=== PATIENT | male | born 1965 | race African-American/Black ===

== ENCOUNTER 2018-01-19 08:20 | Inpatient (IN) | payer OTHER ==
[2018-01-19 08:56] VITALS: BMI 31.5
--- NOTE | 2018-01-19 09:04 | HP ---
CIWA Score - Admission Criteria OASAS Guidelines: Admission for Medically Managed Detox: Requires at least one of the followin. CIWA greater than 12 2. Seizures within the past 24 hours 3. Delirium tremens within the past 24 hours 4. Hallucinations within the past 24 hours 5. Acute intervention needed for co occurring medical disorder 6. Acute intervention needed for co occurring psychiatric disorder 7. Severe withdrawal that cannot be handled at a lower level of care (continued vomiting, continued diarrhea, abnormal vital signs) requiring intravenous medication and/or fluids 8. Admission ROS [facility]HS - HPI Chief Complaint: i am here for rehab from alcohol,cocaine,on parole Allergies/Adverse Reactions: Allergies Allergy/AdvReac Type Severity Reaction Status Date / Time naproxen [From Naprosyn] AdvReac Severe Vomiting Verified 01/19/18 09:32 History of Present Illness: this 52 years old male with alcohol and cocaine dependence,seeking rehab,on parol, last treatment rehab from 02/18/17 to 02/21/17 not completed [facility] 01/06/18 nicotine dependence schizophrenia,bipolar disorder non compliance with medication epilepsy since childhood childhood asthma angina Exam Limitations: No Limitations - Ebola screening Have you traveled outside of the country in the last 21 days: No Have you had contact with anyone from an Ebola affected area: No Have you been sick,other than usual withdrawal symptoms: No Do you have a fever: No - Review of Systems Constitutional: No Symptoms Reported EENT: reports: Other (ulcer of upper lip,no bleeding) Respiratory: reports: No Symptoms reported, Other (asthma at childhood) Cardiac: reports: No Symptoms Reported GI: reports: No Symptoms Reported : reports: No Symptoms Reported Musculoskeletal: reports: No Symptoms Reported Integumentary: reports: No Symptoms Reported Neuro: reports: No Symptoms reported, Other (epilepsy on med since childhood) Endocrine: reports: No Symptoms Reported Hematology: reports: No Symptoms Reported Psychiatric: reports: No Sypmtoms Reported, Judgement Intact, Mood/Affect Appropiate, Orientated x3 (schizophrenia,bipolar disorder) Patient History - Patient Medical History Hx Anemia: No Hx Asthma: Yes (childhood asthma) Hx Chronic Obstructive Pulmonary Disease (COPD): No Hx Cancer: No Hx Cardiac Disorders: Yes (angina) Hx Congestive Heart Failure: No Hx Hypertension: No Hx Hypercholesterolemia: No Hx Pacemaker: No HX Cerebrovascular Accident: No Hx Seizures: Yes (Last Episode 4 months ago) Hx Dementia: No Hx Diabetes: No Hx Gastrointestinal Disorders: No Hx Liver Disease: No Hx Genitourinary Disorders: No Hx Sexually Transmitted Disorders: No Hx Renal Disease (ESRD): No Hx Thyroid Disease: No Hx Human Immunodeficiency Virus (HIV): No (LAST 2014 ) Hx Hepatitis C: No Hx Depression: No Hx Suicide Attempt: No Hx Bipolar Disorder: Yes (non compliance) Hx Schizophrenia: Yes Other Medical History: schizoaffective disorder, - Patient Surgical History Past Surgical History: Yes Hx Neurologic Surgery: No Hx Cataract Extraction: No Hx Cardiac Surgery: No Hx Lung Surgery: No Hx Breast Surgery: No Hx Breast Biopsy: No Hx Abdominal Surgery: No Hx Appendectomy: No Hx Cholecystectomy: No Hx Genitourinary Surgery: No Hx Section: No Hx Orthopedic Surgery: Yes (RIGHT ANKLE 15 YEARS AGO) Anesthesia Reaction: No - PPD History Previous Implant?: Yes Documented Results: Negative w/o proof Date: 02/09/16 Results: 0 mm PPD to be Administered?: Yes - Smoking Cessation Smoking history: Current some day smoker Aproximately how many cigarettes per day: 10 Hx Chewing Tobacco Use: No Initiated information on smoking cessation: Yes 'Breaking Loose' booklet given: 01/19/18 - Substance & Tx. History Hx Alcohol Use: Yes Hx Substance Use: Yes Substance Use Type: Alcohol, Cocaine Hx Substance Use Treatment: Yes ([facility] rehab 02/18/17 to 02/21/17 not completed) - Substances Abused Alcohol Route: Oral Frequency: Daily Amount used: 1pint of gin/6 packs of beer Age of first use: 17 Date of Last Use: 12/18/17 Crack Route: Smoking Frequency: Daily Amount used: 500$ Age of first use: 27 Date of Last Use: 01/18/18 Family Disease History - Family Disease History Family History: Denies Admission Physical Exam BHS - Vital Signs Vital Signs: Vital Signs - 24 hr 01/19/18 08:50 Temperature 98.5 F Pulse Rate 86 Respiratory 18 Rate Blood Pressure 127/72 - Physical General Appearance: Yes: Within Normal Limits HEENTM: Yes: Normal ENT Inspection, Pharynx Normal, Other (ulcer of upper lip fpr 1 week no bleeding,no dranage) Respiratory: Yes: Lungs Clear, Normal Breath Sounds, No Respiratory Distress Neck: Yes: Within Normal Limits, Supple, Trachea in good position Breast: Yes: Within Normal Limits Cardiology: Yes: Within Normal Limits, Regular Rhythm, Regular Rate, S1, S2 Abdominal: Yes: Within Normal Limits, Normal Bowel Sounds, Non Tender, Flat, Soft Genitourinary: Yes: Within Normal Limits Back: Yes: Within Normal Limits Musculoskeletal: Yes: Within Normal Limits Extremities: Yes: Within Normal Limits 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 intact, Fully Oriented, Alert, Motor Strength 5/5 Lymphatic: Yes: Within Normal Limits - Diagnostic (1) Alcohol dependence Current Visit: No Status: Acute (2) Cocaine dependence Current Visit: No Status: Acute (3) Nicotine dependence Current Visit: No Status: Chronic (4) Paranoid schizophrenia Current Visit: No Status: Chronic (5) Seizure Current Visit: No Status: Acute (6) Lip ulcer Current Visit: Yes Status: Acute (7) Angina pectoris Current Visit: Yes Status: Acute Cleared for Admission [facility] - Detox or Rehab Claeared for Rehab Admission: Yes [facility] Breath Alcohol Content Breath Alcohol Content: 0 Urine Drug Screen - Results Drug Screen Negative: No Urine Drug Screen Results: THC-Marijuana, MINA-Cocaine, BZO-Benzodiazepines Inpatient Rehab Admission - Initial Determination Are CD services needed?: Yes Free of communicable disease: Yes Not in need of hospitalization: Yes - Rehab Admission Criteria Previous failed treatment: Yes Poor recovery environment: Yes Comorbidities: Yes Lacks judgement: No Patient is meeting Inpatient Rehab admission criteria:: Yes
[2018-01-19] MEDS ORDERED: P-EPHED 60MG/TRIPROLIDI 2.5MG TABLET PO PRN (09:55)
[2018-01-19] MEDS ORDERED: ACETAMINOPHEN 325 MG TABLET (FP) PO PRN (09:55)
[2018-01-19] MEDS ORDERED: MAG HYDROX/AL HYDROX/SIMETH 30 ML UNIT-DOSE CUP PO PRN (09:55)
[2018-01-19] MEDS ORDERED: MENTHOL/PHENOL 1 EACH UD MM PRN (09:55)
[2018-01-19] MEDS ORDERED: hydrOXYzine PAMOATE 50 MG CAPSULE (FP) PO PRN (09:55)
[2018-01-19] MEDS ORDERED: LOPERAMIDE HCL 2 MG CAPSULE PO PRN (09:55)
[2018-01-19] MEDS ORDERED: guaiFENesin/D-METHORPHAN HB 10 ML UNIT-DOSE CUPS PO PRN (09:55)
[2018-01-19] MEDS ORDERED: IBUPROFEN 400 MG TABLET (FP) PO PRN (09:55)
[2018-01-19] MEDS ORDERED: MAGNESIUM HYDROX 2400MG/30ML ORAL SUSPENSION 30 ML CUP PO PRN (09:55)
[2018-01-19] MEDS ORDERED: MAGNESIUM CITRATE 300 ML BOTTLE PO PRN (09:55)
[2018-01-19] MEDS ORDERED: NITROGLYCERIN SUBLINGUAL 1/150 0.4 MG TAB SL PRN (09:57)
[2018-01-19 14:18] LABS: ALBUMIN 3.4 g/dl (3.4-5.0); ALK PHOS 99 U/L (45-117); ANION GAP 6 MMOL/L (8-16); BILIRUBIN,TOTAL 0.3 mg/dL (0.2-1); BLOOD UREA NITROGEN 18 mg/dL (7-18); CALCIUM 8.4 mg/dL (8.5-10.1); CHLORIDE 101 mmol/L (98-107); CO2 30 mmol/L (21-32); CREATININE 1.1 mg/dL (0.55-1.3); GLUCOSE,RANDOM 87 mg/dL (74-106); POTASSIUM 4.5 mmol/L (3.5-5.1); SGOT/AST 31 U/L (15-37); SGPT/ALT 30 U/L (13-61); SODIUM 137 mmol/L (136-145)
[2018-01-19] MEDS: PHENYTOIN NA EXTENDED 100 MG CAPSULE (FP) PO SCH ×2 (14:26→22:11)
[2018-01-19] MEDS: PRENATAL VITAMINS W/ FOLIC ACID TABLET (FP) PO SCH (14:26)
[2018-01-19 14:36] LABS: HEMATOCRIT 36.1 % (35.4-49); HEMOGLOBIN 12.2 GM/dL (11.7-16.9); MCH 29.3 pg (25.7-33.7); MCHC 33.9 g/dl (32.0-35.9); MEAN CELL VOLUME 86.3 fl (80-96); PLATELET COUNT 221 K/MM3 (134-434); RBC 4.18 M/mm3 (4.00-5.60); RDW 14.6 % (11.9-15.9); WHITE BLOOD COUNT 9.3 K/mm3 (4.0-10.0)
[2018-01-19] MEDS: NICOTINE 21 MG/24 HOURS TOPICAL PATCH TD SCH (15:09)
[2018-01-19] MEDS: BACITRACIN 0.9 GM PACKET TP SCH ×2 (15:09→22:11)
[2018-01-19] MEDS ORDERED: TUBERCULIN PPD 5 TU/0.1ML VIAL ID ONE (15:52)
[2018-01-19 17:22] LABS: URINE APPEARANCE CLEAR; URINE BILIRUBIN NEGATIVE (<2.0 mg/dL); URINE COLOR YELLOW; URINE GLUCOSE (UA) NEGATIVE (NEGATIVE); URINE KETONE NEGATIVE (NEGATIVE); URINE LEUK ESTERASE NEGATIVE (NEGATIVE); URINE NITRITE NEGATIVE (NEGATIVE); URINE PROTEIN 1+ (NEGATIVE); URINE UROBILINOGEN NEGATIVE mg/dL (0.2-1.0)
[2018-01-19 17:45] LABS: EPI CELLS RARE /HPF (FEW); URINE BACTERIA RARE /hpf (NONE SEEN); URINE MUCUS RARE
[2018-01-19] MEDS ORDERED: MELATONIN 5 MG TABLETS PO PRN (22:00)
[2018-01-19] MEDS: THIAMINE HCL 100 MG TABLET (FP) PO SCH (22:11)
[2018-01-19] MEDS: ASPIRIN 325 MG TABLET PO SCH (22:12)
[2018-01-19] MEDS: NICOTINE POLACRILEX 2 MG GUM BUC PRN (22:12)
[2018-01-20] MEDS: PHENYTOIN NA EXTENDED 100 MG CAPSULE (FP) PO SCH ×3 (06:43→21:45)
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
[2018-01-20] MEDS: PRENATAL VITAMINS W/ FOLIC ACID TABLET (FP) PO SCH (11:05)
[2018-01-20] MEDS: BACITRACIN 0.9 GM PACKET TP SCH ×2 (11:06→21:45)
[2018-01-20] MEDS: NICOTINE 21 MG/24 HOURS TOPICAL PATCH TD SCH (11:06)
[2018-01-20] MEDS: NICOTINE POLACRILEX 2 MG GUM BUC PRN (11:08)
[2018-01-20] MEDS: LITHIUM CARBONATE 300 MG CAPSULE (FP) PO SCH ×2 (12:58→21:45)
--- NOTE | 2018-01-20 14:29 | PN ---
[facility] Progress Note Note: PT C/O SWELLING AND DISCOMFORT TO RIGHT ELBOW. REPORTS PAIN ON SITE OF BLOOD DRAWN ADO AFTER HE LEFT [facility] THREE DAYS AGO. PT REPORTS HE WAS THERE FOR C/O CHEST PAIN FOR A DAY. PT CAME TO [facility] YESTERDAY. Vital Signs 01/20/18 07:03 Temperature 97.7 F Pulse Rate 57 L Respiratory 18 Rate Blood Pressure 131/72 Laboratory Tests 01/19/18 01/19/18 01/19/18 10:10 10:10 10:10 WBC 9.3 RBC 4.18 Hgb 12.2 Hct 36.1 MCV 86.3 MCH 29.3 MCHC 33.9 RDW 14.6 Plt Count 221 MPV 9.0 Sodium 137 Potassium 4.5 Chloride 101 Carbon Dioxide 30 Anion Gap 6 L BUN 18 Creatinine 1.1 Creat Clearance w eGFR > 60 Random Glucose 87 Calcium 8.4 L Total Bilirubin 0.3 AST 31 ALT 30 Alkaline Phosphatase 99 Total Protein 7.0 Albumin 3.4 Urine Color Urine Appearance Urine pH Ur Specific Oil Trough Urine Protein Urine Glucose (UA) Urine Ketones Urine Blood Urine Nitrite Urine Bilirubin Urine Urobilinogen Ur Leukocyte Esterase Urine WBC (Auto) Urine RBC (Auto) Ur Epithelial Cells Urine Bacteria Urine Mucus Phenytoin RPR Titer Nonreactive 01/19/18 01/19/18 10:10 15:46 WBC RBC Hgb Hct MCV MCH MCHC RDW Plt Count MPV Sodium Potassium Chloride Carbon Dioxide Anion Gap BUN Creatinine Creat Clearance w eGFR Random Glucose Calcium Total Bilirubin AST ALT Alkaline Phosphatase Total Protein Albumin Urine Color Yellow Urine Appearance Clear Urine pH 5.0 Ur Specific Oil Trough 1.030 Urine Protein 1+ H Urine Glucose (UA) Negative Urine Ketones Negative Urine Blood 2+ H Urine Nitrite Negative Urine Bilirubin Negative Urine Urobilinogen Negative Ur Leukocyte Esterase Negative Urine WBC (Auto) 1 Urine RBC (Auto) 12 Ur Epithelial Cells Rare Urine Bacteria Rare Urine Mucus Rare Phenytoin 3.0 L RPR Titer LABS NOTED 3.0 PT REPORTS HE HAS BEEN TAKING HIS MEDICATION RIGHT ELBOW WITH TENDERNESS TO PHLEBOTOMY SITE AND MILD SWELLING. NO ECHYMOSIS NOTED. PLAN;WARM COMPRESS TO RIGHT ELBOW TID.
--- NOTE | 2018-01-20 16:17 | EKG ---
Test Reason : Blood Pressure : / mmHG Vent. Rate : 059 BPM Atrial Rate : 059 BPM P-R Int : 134 ms QRS Dur : 080 ms QT Int : 462 ms P-R-T Axes : 046 015 030 degrees QTc Int : 457 ms SINUS BRADYCARDIA OTHERWISE NORMAL ECG WHEN COMPARED WITH ECG OF 18-FEB-2017 23:32, NO SIGNIFICANT CHANGE WAS FOUND Confirmed by MD Reynaga Edward ([id number]) on 01/20/2018 4:17:06 PM Referred By: Confirmed By:Juaquin Reynaga MD
[2018-01-20] MEDS: busPIRone HCL 10 MG TABLET (FP) PO SCH (21:45)
[2018-01-20] MEDS: ASPIRIN 325 MG TABLET PO SCH (21:45)
[2018-01-20] MEDS: THIAMINE HCL 100 MG TABLET (FP) PO SCH (21:45)
[2018-01-20] MEDS: ARIPiprazole 10 MG TABLET PO SCH (21:45)
[2018-01-21] MEDS: PHENYTOIN NA EXTENDED 100 MG CAPSULE (FP) PO SCH ×3 (07:20→21:52)
[2018-01-21] MEDS: LITHIUM CARBONATE 300 MG CAPSULE (FP) PO SCH ×2 (10:20→21:52)
[2018-01-21] MEDS: PRENATAL VITAMINS W/ FOLIC ACID TABLET (FP) PO SCH (10:20)
[2018-01-21] MEDS: NICOTINE 21 MG/24 HOURS TOPICAL PATCH TD SCH (10:20)
[2018-01-21] MEDS: BACITRACIN 0.9 GM PACKET TP SCH ×2 (10:20→21:52)
[2018-01-21] MEDS: NICOTINE POLACRILEX 2 MG GUM BUC PRN (10:21)
[2018-01-21] MEDS ORDERED: PHENYTOIN NA EXTENDED 100 MG CAPSULE (FP) PO ONE (14:35)
[2018-01-21] MEDS: ARIPiprazole 10 MG TABLET PO SCH (21:51)
[2018-01-21] MEDS: ASPIRIN 325 MG TABLET PO SCH (21:52)
[2018-01-21] MEDS: THIAMINE HCL 100 MG TABLET (FP) PO SCH (21:52)
[2018-01-21] MEDS: busPIRone HCL 10 MG TABLET (FP) PO SCH (21:52)
[2018-01-22] MEDS: PHENYTOIN NA EXTENDED 100 MG CAPSULE (FP) PO SCH ×3 (06:25→21:44)
[2018-01-22] MEDS: NICOTINE POLACRILEX 2 MG GUM BUC PRN ×2 (06:27→11:02)
[2018-01-22] MEDS: LITHIUM CARBONATE 300 MG CAPSULE (FP) PO SCH ×2 (10:58→21:43)
[2018-01-22] MEDS: PRENATAL VITAMINS W/ FOLIC ACID TABLET (FP) PO SCH (10:58)
[2018-01-22] MEDS: NICOTINE 21 MG/24 HOURS TOPICAL PATCH TD SCH (10:58)
[2018-01-22] MEDS: BACITRACIN 0.9 GM PACKET TP SCH ×2 (10:58→21:43)
[2018-01-22] MEDS: ARIPiprazole 10 MG TABLET PO SCH (21:43)
[2018-01-22] MEDS: busPIRone HCL 10 MG TABLET (FP) PO SCH (21:43)
[2018-01-22] MEDS: THIAMINE HCL 100 MG TABLET (FP) PO SCH (21:44)
[2018-01-22] MEDS: ASPIRIN 325 MG TABLET PO SCH (21:45)
[2018-01-23] MEDS: PHENYTOIN NA EXTENDED 100 MG CAPSULE (FP) PO SCH ×2 (06:41→15:10)
[2018-01-23] MEDS: NICOTINE POLACRILEX 2 MG GUM BUC PRN ×2 (06:42→10:51)
[2018-01-23 07:27] VITALS: BP 142/72; PULSE 61; TEMP 97.5
[2018-01-23] MEDS: NICOTINE 21 MG/24 HOURS TOPICAL PATCH TD SCH (10:49)
[2018-01-23] MEDS: BACITRACIN 0.9 GM PACKET TP SCH (10:49)
[2018-01-23] MEDS: LITHIUM CARBONATE 300 MG CAPSULE (FP) PO SCH (10:49)
[2018-01-23] MEDS: PRENATAL VITAMINS W/ FOLIC ACID TABLET (FP) PO SCH (10:49)
== END 2018-01-23 07:05 | disposition left against medical advice (07) | DRG 770 ==
LOC: EDBD 08:20 → YASAS 08:20 → Y5N 11:32
PROVIDERS: ADMIT Psychiatry & Neurology Psychiatry; ATTEND Psychiatry & Neurology Psychiatry
PROC: HZ42ZZZ Group Counseling for Substance Abuse Treatment, Cognitive-Behavioral (ICD-10-PCS; principal; 2018-01-19)
DX: F10.20 Alcohol dependence, uncomplicated (principal); F14.20 Cocaine dependence, uncomplicated; F17.210 Nicotine dependence, cigarettes, uncomplicated; F20.0 Paranoid schizophrenia; F60.9 Personality disorder, unspecified; F60.2 Antisocial personality disorder; F19.24 Other psychoactive substance dependence with psychoactive substance-induced mood disorder; F19.282 Other psychoactive substance dependence with psychoactive substance-induced sleep disorder; I20.9 Angina pectoris, unspecified; G40.909 Epilepsy, unspecified, not intractable, without status epilepticus; K13.0 Diseases of lips; Z91.14 Patient's other noncompliance with medication regimen; Z59.0 Homelessness
CPT/HCPCS: 36415; 80053; 80178; 80185; 81003; 81015; 85027; 86593; 93005; 93010

== ENCOUNTER 2018-10-05 09:01 | Inpatient (IN) | payer OTHER ==
[2018-10-05 09:48] VITALS: BMI 28.7
--- NOTE | 2018-10-05 11:23 | HP ---
CIWA Score Nausea/Vomitin-Mild Nausea/No Vomiting Muscle Tremors: 1-None Visible, but [place] Anxiety: 1-Mildly Anxious Agitation: 1-Slight > Activity Paroxysmal Sweats: No Perspiration Orientation: 0-Oriented Tacttile Disturbances: 0-None Auditory Disturbances: 0-None Visual Disturbances: 0-None Headache: 2-Mild CIWA-Ar Total Score: 6 - Admission Criteria OASAS Guidelines: Admission for Medically Managed Detox: Requires at least one of the followin. CIWA greater than 12 2. Seizures within the past 24 hours 3. Delirium tremens within the past 24 hours 4. Hallucinations within the past 24 hours 5. Acute intervention needed for co occurring medical disorder 6. Acute intervention needed for co occurring psychiatric disorder 7. Severe withdrawal that cannot be handled at a lower level of care (continued vomiting, continued diarrhea, abnormal vital signs) requiring intravenous medication and/or fluids 8. Admission ROS BHS - HPI Chief Complaint: I need help to stop drinking alcohol,cocaine and marijuana Allergies/Adverse Reactions: Allergies Allergy/AdvReac Type Severity Reaction Status Date / Time No Known Allergies Allergy Verified 10/05/18 11:16 History of Present Illness: this 7o years old male with alcohol,cocaine and marijuana dependence,seeking rehab, no withdrawal symptom, last treatment rehab [facility] 01/19/18 to 01/25/18 history of schizophrenia blister on both feet had seizure ,last 09/24 last detox [facility] 2 weeks ago for 3 days Exam Limitations: No Limitations - Ebola screening Have you traveled outside of the country in the last 21 days: No Have you had contact with anyone from an Ebola affected area: No - Review of Systems EENT: reports: No Symptoms Reported Respiratory: reports: No Symptoms reported Cardiac: reports: No Symptoms Reported GI: reports: No Symptoms Reported : reports: No Symptoms Reported Musculoskeletal: reports: No Symptoms Reported Integumentary: reports: No Symptoms Reported, Other (blister both feet) Neuro: reports: No Symptoms reported Endocrine: reports: No Symptoms Reported Hematology: reports: No Symptoms Reported Psychiatric: reports: No Sypmtoms Reported, Judgement Intact, Mood/Affect Appropiate, Orientated x3 (schizophrenia) Other Systems: Reviewed and Negative Patient History - Patient Medical History Hx Anemia: No Hx Asthma: Yes (childhood asthma) Hx Chronic Obstructive Pulmonary Disease (COPD): No Hx Cancer: No Hx Cardiac Disorders: No Hx Congestive Heart Failure: No Hx Hypertension: No Hx Hypercholesterolemia: No Hx Pacemaker: No HX Cerebrovascular Accident: No Hx Seizures: Yes (Last Episode 09/24) Hx Dementia: No Hx Diabetes: No Hx Gastrointestinal Disorders: No Hx Liver Disease: No Hx Genitourinary Disorders: No Hx Sexually Transmitted Disorders: No Hx Renal Disease (ESRD): No Hx Thyroid Disease: No Hx Human Immunodeficiency Virus (HIV): No (LAST 2014 negative) Hx Hepatitis C: No Hx Depression: No Hx Suicide Attempt: No Hx Bipolar Disorder: Yes (non compliance) Hx Schizophrenia: Yes Other Medical History: no suicidal,no homicidal - Patient Surgical History Past Surgical History: Yes Hx Neurologic Surgery: No Hx Cataract Extraction: No Hx Cardiac Surgery: No Hx Lung Surgery: No Hx Breast Surgery: No Hx Breast Biopsy: No Hx Abdominal Surgery: No Hx Appendectomy: No Hx Cholecystectomy: No Hx Genitourinary Surgery: No Hx Section: No Hx Orthopedic Surgery: Yes (RIGHT ANKLE 15 YEARS AGO) Anesthesia Reaction: No - PPD History Previous Implant?: Yes Documented Results: Negative w/o proof Implanted On Prior R Admission?: Yes Date: 02/09/16 Results: 0 mm PPD to be Administered?: No - Smoking Cessation Smoking history: Never smoked Have you smoked in the past 12 months: No Hx Chewing Tobacco Use: No - Substance & Tx. History Hx Alcohol Use: Yes Hx Substance Use: Yes Substance Use Type: Alcohol, Cocaine, Marijuana Hx Substance Use Treatment: Yes ([facility] 09/13/18) - Substances abused Alcohol Substance route: Oral Frequency: Daily Amount used: 1 pint of vodka Age of first use: 17 Date of last use: 10/04/18 Crack Substance route: Smoking Frequency: 3-6 times per week Amount used: 10 bags Age of first use: 22 Date of last use: 10/04/18 Marijuana/Hashish Substance route: Smoking Frequency: Daily Amount used: 50$ Age of first use: 22 Date of last use: 10/04/18 Family Disease History - Family Disease History Family History: Denies Admission Physical Exam BHS - Vital Signs Vital Signs: Vital Signs - 24 hr 10/05/18 10/05/18 10/05/18 09:41 10:49 10:56 Temperature 97.0 F L 97.0 F L 97.0 F L Pulse Rate 84 84 84 Respiratory 17 17 17 Rate Blood Pressure 138/83 138/83 138/83 - Physical General Appearance: Yes: Within Normal Limits HEENTM: Yes: Normal ENT Inspection, SCAR, Pharynx Normal Respiratory: Yes: Within Normal Limits, Lungs Clear, Normal Breath Sounds Neck: Yes: Within Normal Limits, Supple, Trachea in good position Breast: Yes: Within Normal Limits Cardiology: Yes: Within Normal Limits, Regular Rhythm, Regular Rate, S1, S2 Abdominal: Yes: Within Normal Limits, Normal Bowel Sounds, Non Tender, Flat Genitourinary: Yes: Within Normal Limits Back: Yes: Within Normal Limits Musculoskeletal: Yes: Within Normal Limits Extremities: Yes: Within Normal Limits 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: Yes: Within Normal Limits, 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 intact, Alert, Motor Strength 5/5 Integumentary: Yes: Within Normal Limits Lymphatic: Yes: Within Normal Limits - Diagnostic (1) Alcohol dependence Current Visit: No Status: Acute (2) Cocaine dependence Current Visit: No Status: Acute (3) Seizure Current Visit: No Status: Acute (4) Paranoid schizophrenia Current Visit: No Status: Chronic Cleared for Admission [facility] - Detox or Rehab Claeared for Rehab Admission: Yes Breathalyzer - Breathalyzer Breathalyzer: 0 Urine Drug Screen - Test Device Lot number: [id number] Expiration date: 07/07/20 - Control Is test valid?: Yes - Results Drug screen NEGATIVE: No Urine drug screen results: THC-Marijuana, MINA-Cocaine Inpatient Rehab Admission - Rehab Decision to Admit Inpatient rehab admission?: Yes - Initial Determination Are CD services needed?: Yes Free of communicable disease: Yes Not in need of hospitalization: Yes - Rehab Admission Criteria Previous failed treatment: Yes Poor recovery environment: Yes Comorbidities: Yes Lacks judgement: No Patient is meeting Inpatient Rehab admission criteria:: Yes
[2018-10-05] MEDS ORDERED: guaiFENesin 200 MG/10 ML 10 ML UNIT-DOSE CUPS PO PRN (11:39)
[2018-10-05] MEDS ORDERED: ACETAMINOPHEN 325 MG TABLET (FP) PO PRN (11:39)
[2018-10-05] MEDS ORDERED: IBUPROFEN 400 MG TABLET (FP) PO PRN (11:39)
[2018-10-05] MEDS ORDERED: MAGNESIUM HYDROX 2400MG/30ML ORAL SUSPENSION 30 ML CUP PO PRN (11:39)
[2018-10-05] MEDS ORDERED: MAGNESIUM CITRATE 300 ML BOTTLE PO PRN (11:39)
[2018-10-05] MEDS ORDERED: LOPERAMIDE HCL 2 MG CAPSULE PO PRN (11:39)
[2018-10-05] MEDS ORDERED: MAG HYDROX/AL HYDROX/SIMETH 30 ML UNIT-DOSE CUP PO PRN (11:39)
[2018-10-05] MEDS ORDERED: P-EPHED 60MG/TRIPROLIDI 2.5MG TABLET PO PRN (11:39)
[2018-10-05] MEDS ORDERED: NITROGLYCERIN SUBLINGUAL 1/150 0.4 MG TAB SL PRN (11:43)
--- NOTE | 2018-10-05 11:48 | PN ---
[facility] Progress Note Note: patient has history of angina on asa non compliance,nitroglycerine prn
[2018-10-05] MEDS ORDERED: METHOCARBAMOL 500 MG TABLET PO PRN (11:50)
[2018-10-05 16:28] LABS: HEMATOCRIT 36.6 % (35.4-49); HEMOGLOBIN 12.3 GM/dL (11.7-16.9); MCHC 33.6 g/dl (32.0-35.9); MEAN CELL VOLUME 86.3 fl (80-96); MEAN PLT VOLUME 8.6 fl (7.5-11.1); PLATELET COUNT 378 K/MM3 (134-434); RBC 4.24 M/mm3 (4.00-5.60); RDW 13.8 % (11.9-15.9); WHITE BLOOD COUNT 9.4 K/mm3 (4.0-10.0)
[2018-10-05 16:35] LABS: ALBUMIN 3.5 g/dl (3.4-5.0); BILIRUBIN,TOTAL 0.2 mg/dL (0.2-1); BLOOD UREA NITROGEN 21.6 mg/dL (7-18); CALCIUM 9.2 mg/dL (8.5-10.1); CREATININE 1.2 mg/dL (0.55-1.3); POTASSIUM 4.5 mmol/L (3.5-5.1)
[2018-10-05] MEDS: SILVER SULFADIAZINE 1% TOP CREAM 50 GM JAR TP SCH ×2 (17:25→21:42)
[2018-10-05] MEDS: PHENYTOIN NA EXTENDED 100 MG CAPSULE (FP) PO SCH ×2 (17:25→21:42)
[2018-10-05] MEDS: ASPIRIN 81 MG CHEWABLE TABLETS PO SCH (17:49)
[2018-10-05] MEDS: THIAMINE HCL 100 MG TABLET (FP) PO SCH (21:43)
[2018-10-05] MEDS: MELATONIN 5 MG TABLETS PO PRN (21:43)
[2018-10-05] MEDS: hydrOXYzine PAMOATE 25 MG CAPSULE (FP) PO PRN (21:46)
[2018-10-06] MEDS: PHENYTOIN NA EXTENDED 100 MG CAPSULE (FP) PO SCH ×3 (07:19→23:24)
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
[2018-10-06] MEDS: ASPIRIN 81 MG CHEWABLE TABLETS PO SCH (10:58)
[2018-10-06] MEDS: PRENATAL VITAMINS W/ FOLIC ACID TABLET (FP) PO SCH (10:59)
[2018-10-06] MEDS: SILVER SULFADIAZINE 1% TOP CREAM 50 GM JAR TP SCH ×2 (10:59→23:25)
[2018-10-06] MEDS ORDERED: LITHIUM CARBONATE 300 MG CAPSULE (FP) PO SCH ×2 (12:00→12:30)
[2018-10-06] MEDS: hydrOXYzine PAMOATE 25 MG CAPSULE (FP) PO PRN (12:07)
[2018-10-06] MEDS: NICOTINE POLACRILEX 4 MG GUM BUC PRN (12:07)
[2018-10-06] MEDS: NICOTINE 21 MG/24 HOURS TOPICAL PATCH TD SCH (12:08)
[2018-10-06] MEDS: busPIRone HCL 10 MG TABLET (FP) PO SCH (23:24)
[2018-10-06] MEDS: ARIPiprazole 10 MG TABLET PO SCH (23:24)
[2018-10-06] MEDS: LITHIUM CARBONATE 300 MG CAPSULE (FP) PO SCH (23:24)
[2018-10-06] MEDS: THIAMINE HCL 100 MG TABLET (FP) PO SCH (23:25)
[2018-10-07] MEDS: MENTHOL/PHENOL 1 EACH UD MM PRN ×2 (01:30→22:15)
[2018-10-07] MEDS: PHENYTOIN NA EXTENDED 100 MG CAPSULE (FP) PO SCH ×3 (06:50→22:12)
[2018-10-07] MEDS: NICOTINE POLACRILEX 4 MG GUM BUC PRN ×2 (06:51→22:16)
[2018-10-07] MEDS: ASPIRIN 81 MG CHEWABLE TABLETS PO SCH (11:05)
[2018-10-07] MEDS: PRENATAL VITAMINS W/ FOLIC ACID TABLET (FP) PO SCH (11:05)
[2018-10-07] MEDS: LITHIUM CARBONATE 300 MG CAPSULE (FP) PO SCH ×2 (11:05→22:13)
[2018-10-07] MEDS: hydrOXYzine PAMOATE 25 MG CAPSULE (FP) PO PRN (11:06)
[2018-10-07] MEDS: NICOTINE 21 MG/24 HOURS TOPICAL PATCH TD SCH (11:07)
[2018-10-07] MEDS: SILVER SULFADIAZINE 1% TOP CREAM 50 GM JAR TP SCH ×2 (11:07→22:14)
[2018-10-07] MEDS ORDERED: AMOX TR/POT CLAV 875MG/125MG TABLETS (FP) PO ONE (11:45)
--- NOTE | 2018-10-07 11:46 | PN ---
[facility] Progress Note (SOAP) Subjective: Pt c/o sorethroat and states he was being treated with antibiotics-"Amoxicillin " before coming here. Pt states he was given Rx for Amoxicillin and took only 3 doses 6 days ago, forgot to tell anyone when he was being admitted "because it was not hurting then" until today. This health technical writer checked pt's pharmacy online and pt was prescribed Amoxicillin/clav tab 875-125, qty 20 for 10 days. Pt reports he does not have the bottle of medication any more anywhere. Objective: 10/07/18 11:48 Vital Signs - 24 hr 10/06/18 10/06/18 10/07/18 21:00 21:12 00:30 Pulse Rate 71 71 Respiratory 18 Rate Blood Pressure 132/79 132/79 10/07/18 10/07/18 03:30 06:58 Pulse Rate Respiratory 18 18 Rate Blood Pressure Laboratory Tests 10/05/18 10/05/18 10/05/18 12:00 12:00 12:00 WBC 9.4 RBC 4.24 Hgb 12.3 Hct 36.6 MCV 86.3 MCH 29.0 MCHC 33.6 RDW 13.8 Plt Count 378 D MPV 8.6 Sodium 136 Potassium 4.5 Chloride 98 Carbon Dioxide 32 Anion Gap 6 L BUN 21.6 H Creatinine 1.2 Est GFR (CKD-EPI)AfAm 81.23 Est GFR (CKD-EPI)NonAf 70.09 Random Glucose 99 Calcium 9.2 Total Bilirubin 0.2 AST 66 H ALT 36 Alkaline Phosphatase 102 Total Protein 8.0 Albumin 3.5 Phenytoin RPR Titer Nonreactive HIV 1&2 Antibody Screen HIV P24 Antigen 10/05/18 10/05/18 12:00 12:00 WBC RBC Hgb Hct MCV MCH MCHC RDW Plt Count MPV Sodium Potassium Chloride Carbon Dioxide Anion Gap BUN Creatinine Est GFR (CKD-EPI)AfAm Est GFR (CKD-EPI)NonAf Random Glucose Calcium Total Bilirubin AST ALT Alkaline Phosphatase Total Protein Albumin Phenytoin 0.9 L RPR Titer HIV 1&2 Antibody Screen Negative HIV P24 Antigen Negative Exam: HEENT:Normocephalic,eomi,perrla; throat slightly injected, no exudate, tonsils enlarged-L>R. Assessment: 10/07/18 11:50 enlarged tonsils tonsilitis Plan: Restart augmentin 875/125 mg po bid x 10 days. increase po fluids
[2018-10-07] MEDS: AMOX TR/POT CLAV 875MG/125MG TABLETS (FP) PO SCH (22:12)
[2018-10-07] MEDS: busPIRone HCL 10 MG TABLET (FP) PO SCH (22:12)
[2018-10-07] MEDS: ARIPiprazole 10 MG TABLET PO SCH (22:12)
[2018-10-07] MEDS: THIAMINE HCL 100 MG TABLET (FP) PO SCH (22:13)
[2018-10-08] MEDS: PHENYTOIN NA EXTENDED 100 MG CAPSULE (FP) PO SCH ×3 (06:30→21:21)
[2018-10-08] MEDS: ASPIRIN 81 MG CHEWABLE TABLETS PO SCH (10:29)
[2018-10-08] MEDS: LITHIUM CARBONATE 300 MG CAPSULE (FP) PO SCH ×2 (10:29→21:22)
[2018-10-08] MEDS: PRENATAL VITAMINS W/ FOLIC ACID TABLET (FP) PO SCH (10:29)
[2018-10-08] MEDS: NICOTINE 21 MG/24 HOURS TOPICAL PATCH TD SCH (10:30)
[2018-10-08] MEDS: AMOX TR/POT CLAV 875MG/125MG TABLETS (FP) PO SCH ×2 (10:32→21:20)
[2018-10-08] MEDS: SILVER SULFADIAZINE 1% TOP CREAM 50 GM JAR TP SCH ×2 (10:33→21:22)
[2018-10-08] MEDS: NICOTINE POLACRILEX 4 MG GUM BUC PRN (10:34)
[2018-10-08] MEDS: busPIRone HCL 10 MG TABLET (FP) PO SCH (21:21)
[2018-10-08] MEDS: THIAMINE HCL 100 MG TABLET (FP) PO SCH (21:22)
[2018-10-08] MEDS: ARIPiprazole 10 MG TABLET PO SCH (21:22)
[2018-10-08] MEDS: MELATONIN 5 MG TABLETS PO PRN (21:23)
[2018-10-08] MEDS: MENTHOL/PHENOL 1 EACH UD MM PRN (21:24)
[2018-10-09] MEDS: PHENYTOIN NA EXTENDED 100 MG CAPSULE (FP) PO SCH ×3 (06:41→21:27)
[2018-10-09] MEDS: MENTHOL/PHENOL 1 EACH UD MM PRN (06:42)
[2018-10-09] MEDS: AMOX TR/POT CLAV 875MG/125MG TABLETS (FP) PO SCH ×2 (10:27→21:27)
[2018-10-09] MEDS: LITHIUM CARBONATE 300 MG CAPSULE (FP) PO SCH ×2 (10:27→21:27)
[2018-10-09] MEDS: ASPIRIN 81 MG CHEWABLE TABLETS PO SCH (10:27)
[2018-10-09] MEDS: PRENATAL VITAMINS W/ FOLIC ACID TABLET (FP) PO SCH (10:27)
[2018-10-09] MEDS: SILVER SULFADIAZINE 1% TOP CREAM 50 GM JAR TP SCH ×2 (10:28→21:28)
[2018-10-09] MEDS: NICOTINE 21 MG/24 HOURS TOPICAL PATCH TD SCH (10:28)
[2018-10-09 12:52] LABS: HYALINE CASTS 30 /lpf (0-8); URINE APPEARANCE CLOUDY; URINE BACTERIA 4.4 /hpf (NEGATIVE); URINE BILIRUBIN NEGATIVE (NEGATIVE); URINE COLOR YELLOW; URINE GLUCOSE (UA) NEGATIVE (NEGATIVE); URINE KETONE TRACE (NEGATIVE); URINE LEUK ESTERASE NEGATIVE (NEGATIVE); URINE NITRITE NEGATIVE (NEGATIVE); URINE PROTEIN TRACE (NEGATIVE); URINE RBC 13 /hpf (0-4); URINE UROBILINOGEN 0.2 mg/dL (0.2-1.0); URINE WBC 0 /hpf (0-5)
[2018-10-09 14:10] LABS: URINE CRYSTALS CALCIUM OXALATE=2+ /hpf
--- NOTE | 2018-10-09 15:15 | PN ---
Psychiatric Progress Note Vital Signs: Vital Signs Period Temp Pulse Resp BP Sys/Queen Pulse Ox Last 24 Hr 98.5 F 66 18-18 149/72 Date of Session: 10/09/18 Chief Complaint:: " I'm having trouble sleeping. I need seroquel." HPI: Patient admitted to for treament of alcohol, cocaine and cannabis dependence co-morbid schizophrenia. ROS: Patient is coherent, alert and oriented X3. Current Medications: Active Medications Generic Name Dose Route Start Last Admin Trade Name Freq PRN Reason Stop Dose Admin Acetaminophen 650 mg 10/05/18 11:39 Tylenol - PO Q4H PRN FEVER Al Hydroxide/Mg Hydroxide 30 ml 10/05/18 11:39 Mylanta Oral Suspension - PO Q6H PRN DYSPEPSIA Amoxicillin/Clavulanate Potassium 1 tab 10/07/18 22:00 10/09/18 10:27 Augmentin - 875mg Tablet PO 10/17/18 21:59 1 tab BID SABRINA Administration Aripiprazole 20 mg 10/06/18 22:00 10/08/18 21:22 Abilify PO 20 mg HS SABRINA Administration Aspirin 81 mg 10/05/18 12:30 10/09/18 10:27 Asa - PO 81 mg DAILY SABRINA Administration Buspirone HCl 10 mg 10/06/18 22:00 10/08/18 21:21 Buspar - PO 10 mg HS SABRINA Administration Eucalyptus/Menthol/Phenol/Sorbitol 1 each 10/05/18 11:39 10/09/18 06:42 Cepastat Lozenge - MM 1 each Q4H PRN Administration SORE THROAT Guaifenesin 10 ml 10/05/18 11:39 Robitussin - PO Q6H PRN COUGH Hydroxyzine Pamoate 25 mg 10/05/18 11:39 10/07/18 11:06 Vistaril - PO 25 mg Q4H PRN Administration AGITATION Ibuprofen 400 mg 10/05/18 11:39 Motrin - PO Q6H PRN Pain level 4-6 [place] Carbonate 600 mg 10/06/18 22:00 10/09/18 10:27 Eskalith - PO 600 mg BID SABRINA Administration Loperamide HCl 4 mg 10/05/18 11:39 Imodium - PO Q6H PRN DIARRHEA Magnesium Citrate 300 ml 10/05/18 11:39 Citroma - PO Q48H PRN CONSTIPATION Magnesium Hydroxide 30 ml 10/05/18 11:39 Milk Of Magnesia - PO DAILY PRN CONSTIPATION Melatonin 5 mg 10/05/18 22:00 10/08/18 21:23 Melatonin PO 5 mg HS PRN Administration INSOMNIA Methocarbamol 500 mg 10/05/18 11:50 Robaxin - PO QID PRN MUSCLE SPASMS Nicotine 21 mg 10/06/18 11:30 10/09/18 10:28 Nicoderm Patch - TD Not Given DAILY SABRINA Nicotine Polacrilex 4 mg 10/06/18 11:21 10/08/18 10:34 Nicorette Gum - BUC 4 mg Q2H PRN Administration NICOTINE REPLACEMENT RX Nitroglycerin 0.4 mg 10/05/18 11:43 Nitrostat - SL PRN PRN FOR CHEST PAIN Phenytoin Sodium 100 mg 10/05/18 14:00 10/09/18 14:16 Dilantin - PO 100 mg TID SABRINA Administration Multivit/Folic Acid/Iron 1 tab 10/06/18 10:00 10/09/18 10:27 Vitamins (Sjr) - PO 1 tab DAILY SABRINA Administration Pseudoephedrine/Triprolidine 1 combo 10/05/18 11:39 Actifed - PO TID PRN NASAL CONGESTION Silver Sulfadiazine 1 applic 10/05/18 12:30 10/09/18 10:28 Silvadene - TP Not Given BID SABRINA Thiamine HCl 100 mg 10/05/18 22:00 10/08/18 21:22 Vitamin B1 - PO 100 mg HS SABRINA Administration Medication(s) Change(s): Yes. Current Side Effect: No Lab tests ordered: No Lab tests reviewed: Yes Provider note:: Patient reports difficulty sleeping. Dr. Jang's note read and appreciated. Patient states that he was receiving seroquel while incarcerated. He was released from incarceration on August 16, 2018. He reports taking abilify 20mg, buspar 10, lithium 600mg BID and seroquel 200mg HS. Patient seen by Dr. Jang and was continued on abilify 20mg HS+ [place] 600mg BID and buspar 10mg HS. Will order seroquel 100mg HS. Benefits and side effects discussed. Verbal consent given. Total face to face time:: 25 Mental Status Exam - Mental Status Exam Alert and Oriented to: Time, Place, Person Cognitive Function: Good Patient Appearance: Well Groomed Mood: Withdrawn Affect: Mood Congruent Patient Behavior: Cooperative Speech Pattern: Appropriate Voice Loudness: Normal Thought Process: Goal Oriented Thought Disorder: Not Present Hallucinations: Denies Suicidal Ideation: Denies Homicidal Ideation: Denies Insight/Judgement: Poor Sleep: Poorly Appetite: Fair Muscle strength/Tone: Normal Gait/Station: Normal Psychiatric Treatment Plan - Problem List (1) Substance induced mood disorder Current Visit: Yes (2) Substance-induced sleep disorder Current Visit: Yes (3) Paranoid schizophrenia Current Visit: No (4) Alcohol dependence Current Visit: Yes (5) Cocaine dependence Current Visit: Yes (6) Schizoaffective disorder Current Visit: Yes
[2018-10-09] MEDS: QUEtiapine FUMARATE 100 MG TABLET (FP) PO SCH (21:27)
[2018-10-09] MEDS: busPIRone HCL 10 MG TABLET (FP) PO SCH (21:27)
[2018-10-09] MEDS: ARIPiprazole 10 MG TABLET PO SCH (21:27)
[2018-10-09] MEDS: THIAMINE HCL 100 MG TABLET (FP) PO SCH (21:27)
[2018-10-10] MEDS: PHENYTOIN NA EXTENDED 100 MG CAPSULE (FP) PO SCH ×3 (06:44→21:56)
[2018-10-10] MEDS: ASPIRIN 81 MG CHEWABLE TABLETS PO SCH (11:13)
[2018-10-10] MEDS: AMOX TR/POT CLAV 875MG/125MG TABLETS (FP) PO SCH ×2 (11:13→22:03)
[2018-10-10] MEDS: PRENATAL VITAMINS W/ FOLIC ACID TABLET (FP) PO SCH (11:14)
[2018-10-10] MEDS: NICOTINE 21 MG/24 HOURS TOPICAL PATCH TD SCH (11:14)
[2018-10-10] MEDS: LITHIUM CARBONATE 300 MG CAPSULE (FP) PO SCH ×2 (11:14→21:56)
[2018-10-10] MEDS: SILVER SULFADIAZINE 1% TOP CREAM 50 GM JAR TP SCH ×2 (11:14→22:05)
[2018-10-10] MEDS: ARIPiprazole 10 MG TABLET PO SCH (21:56)
[2018-10-10] MEDS: THIAMINE HCL 100 MG TABLET (FP) PO SCH (21:56)
[2018-10-10] MEDS: busPIRone HCL 10 MG TABLET (FP) PO SCH (21:56)
[2018-10-10] MEDS: QUEtiapine FUMARATE 100 MG TABLET (FP) PO SCH (21:58)
[2018-10-10] MEDS: NICOTINE POLACRILEX 4 MG GUM BUC PRN (22:06)
[2018-10-11] MEDS: PHENYTOIN NA EXTENDED 100 MG CAPSULE (FP) PO SCH ×2 (06:44→14:19)
[2018-10-11 06:58] VITALS: BP 124/84; PULSE 84; TEMP 98.1
[2018-10-11] MEDS: NICOTINE 21 MG/24 HOURS TOPICAL PATCH TD SCH (10:26)
[2018-10-11] MEDS: SILVER SULFADIAZINE 1% TOP CREAM 50 GM JAR TP SCH (10:27)
[2018-10-11] MEDS: PRENATAL VITAMINS W/ FOLIC ACID TABLET (FP) PO SCH (10:27)
[2018-10-11] MEDS: ASPIRIN 81 MG CHEWABLE TABLETS PO SCH (10:27)
[2018-10-11] MEDS: LITHIUM CARBONATE 300 MG CAPSULE (FP) PO SCH (10:27)
[2018-10-11] MEDS: AMOX TR/POT CLAV 875MG/125MG TABLETS (FP) PO SCH (10:28)
--- NOTE | 2018-10-11 10:52 | PN ---
[facility] Progress Note Note: Laboratory Last Values WBC 9.4 K/mm3 (4.0-10.0) 10/05/18 12:00 RBC 4.24 M/mm3 (4.00-5.60) 10/05/18 12:00 Hgb 12.3 GM/dL (11.7-16.9) 10/05/18 12:00 Hct 36.6 % (35.4-49) 10/05/18 12:00 MCV 86.3 fl (80-96) 10/05/18 12:00 MCH 29.0 pg (25.7-33.7) 10/05/18 12:00 MCHC 33.6 g/dl (32.0-35.9) 10/05/18 12:00 RDW 13.8 % (11.9-15.9) 10/05/18 12:00 Plt Count 378 K/MM3 (134-434) D 10/05/18 12:00 MPV 8.6 fl (7.5-11.1) 10/05/18 12:00 Sodium 136 mmol/L (136-145) 10/05/18 12:00 Potassium 4.5 mmol/L (3.5-5.1) 10/05/18 12:00 Chloride 98 mmol/L (98-107) 10/05/18 12:00 Carbon Dioxide 32 mmol/L (21-32) 10/05/18 12:00 Anion Gap 6 MMOL/L (8-16) L 10/05/18 12:00 BUN 21.6 mg/dL (7-18) H 10/05/18 12:00 Creatinine 1.2 mg/dL (0.55-1.3) 10/05/18 12:00 Est GFR (CKD-EPI)AfAm 81.23 10/05/18 12:00 Est GFR (CKD-EPI)NonAf 70.09 10/05/18 12:00 Random Glucose 99 mg/dL (74-106) 10/05/18 12:00 Calcium 9.2 mg/dL (8.5-10.1) 10/05/18 12:00 Total Bilirubin 0.2 mg/dL (0.2-1) 10/05/18 12:00 AST 66 U/L (15-37) H 10/05/18 12:00 ALT 36 U/L (13-61) 10/05/18 12:00 Alkaline Phosphatase 102 U/L (45-117) 10/05/18 12:00 Total Protein 8.0 g/dl (6.4-8.2) 10/05/18 12:00 Albumin 3.5 g/dl (3.4-5.0) 10/05/18 12:00 Urine Color Yellow 10/09/18 09:00 Urine Appearance Cloudy 10/09/18 09:00 Urine pH 5.0 (5.0-8.0) 10/09/18 09:00 Ur Specific [place] 1.022 (1.010-1.035) 10/09/18 09:00 Urine Protein Trace (NEGATIVE) 10/09/18 09:00 Urine Glucose (UA) Negative (NEGATIVE) 10/09/18 09:00 Urine Ketones Trace (NEGATIVE) H 10/09/18 09:00 Urine Blood 2+ (NEGATIVE) H 10/09/18 09:00 Urine Nitrite Negative (NEGATIVE) 10/09/18 09:00 Urine Bilirubin Negative (NEGATIVE) 10/09/18 09:00 Urine Urobilinogen 0.2 mg/dL (0.2-1.0) 10/09/18 09:00 Ur Leukocyte Esterase Negative (NEGATIVE) 10/09/18 09:00 Urine WBC (Auto) 0 /hpf (0-5) 10/09/18 09:00 Urine RBC (Auto) 13 /hpf (0-4) 10/09/18 09:00 Urine Casts (Auto) 30 /lpf (0-8) 10/09/18 09:00 U Epithel Cells (Auto) 1.0 /HPF (0-5/HPF) 10/09/18 09:00 Urine Crystals (Auto) Calcium oxalate=2+ /hpf 10/09/18 09:00 Urine Bacteria (Auto) 4.4 /hpf (NEGATIVE) 10/09/18 09:00 Phenytoin 0.9 ug/ml (10.0-20.0) L 10/05/18 12:00 RPR Titer Nonreactive (NONREACTIVE) 10/05/18 12:00 HIV 1&2 Antibody Screen Negative 10/05/18 12:00 HIV P24 Antigen Negative 10/05/18 12:00 TB (QFT) Incubation (.) 10/05/18 14:00 TB Test (QFT) Nil 0.03 IU/mL (.) 10/05/18 14:00 TB Test (QFT) Mitogen >10.00 IU/mL (.) 10/05/18 14:00 TB Test (QFT) Antigen 0.03 IU/mL (.) 10/05/18 14:00 TB Test (QFT) Negative (Negative) 10/05/18 14:00 TB Positive Criteria (.) 10/05/18 14:00 repeat ua ordered
[2018-10-11 13:06] LABS: EPI CELLS 0.9 /HPF (0-5/HPF); HYALINE CASTS 0 /lpf (0-8); PH,URINE 8.5 (5.0-8.0); URINE APPEARANCE CLEAR; URINE BACTERIA 1.9 /hpf (NEGATIVE); URINE BILIRUBIN NEGATIVE (NEGATIVE); URINE COLOR YELLOW; URINE GLUCOSE (UA) NEGATIVE (NEGATIVE); URINE KETONE NEGATIVE (NEGATIVE); URINE LEUK ESTERASE NEGATIVE (NEGATIVE); URINE NITRITE NEGATIVE (NEGATIVE); URINE PROTEIN NEGATIVE (NEGATIVE); URINE RBC 3 /hpf (0-4); URINE UROBILINOGEN 0.2 mg/dL (0.2-1.0); URINE WBC 1 /hpf (0-5)
--- NOTE | 2018-10-11 16:32 | PN ---
[facility] Progress Note Note: Laboratory Results - last 24 hr 10/11/18 11:00 Urine Color Yellow Urine Appearance Clear Urine pH 8.5 H D Ur Specific [place] 1.011 Urine Protein Negative Urine Glucose (UA) Negative Urine Ketones Negative Urine Blood Trace Urine Nitrite Negative Urine Bilirubin Negative Urine Urobilinogen 0.2 Ur Leukocyte Esterase Negative Urine WBC (Auto) 1 Urine RBC (Auto) 3 Urine Casts (Auto) 0 U Epithel Cells (Auto) 0.9 Urine Bacteria (Auto) 1.9 repeat ua as shown encourage oral fluid and water
--- NOTE | 2018-10-11 20:25 | PN ---
S Progress Note Note: patient did not want to complete treatment due to family emergency,did not want to wait,signed release AMA,seen by counselor
--- NOTE | 2018-10-11 20:30 | PN ---
[facility] Progress Note Note: this is the note for discharge from rehab date of admission 10/05/18 date of discharge 10/11/18 diagnosis alcohol dependence cocaine dependence seizure paranoid schizophrenia Vital Signs Temperature 98.1 F 10/11/18 06:57 Pulse Rate 84 10/11/18 06:57 Respiratory Rate 18 10/11/18 06:57 Blood Pressure 124/84 10/11/18 06:57 O2 Sat by Pulse Oximetry (%) Laboratory Last Values WBC 9.4 K/mm3 (4.0-10.0) 10/05/18 12:00 RBC 4.24 M/mm3 (4.00-5.60) 10/05/18 12:00 Hgb 12.3 GM/dL (11.7-16.9) 10/05/18 12:00 Hct 36.6 % (35.4-49) 10/05/18 12:00 MCV 86.3 fl (80-96) 10/05/18 12:00 MCH 29.0 pg (25.7-33.7) 10/05/18 12:00 MCHC 33.6 g/dl (32.0-35.9) 10/05/18 12:00 RDW 13.8 % (11.9-15.9) 10/05/18 12:00 Plt Count 378 K/MM3 (134-434) D 10/05/18 12:00 MPV 8.6 fl (7.5-11.1) 10/05/18 12:00 Sodium 136 mmol/L (136-145) 10/05/18 12:00 Potassium 4.5 mmol/L (3.5-5.1) 10/05/18 12:00 Chloride 98 mmol/L (98-107) 10/05/18 12:00 Carbon Dioxide 32 mmol/L (21-32) 10/05/18 12:00 Anion Gap 6 MMOL/L (8-16) L 10/05/18 12:00 BUN 21.6 mg/dL (7-18) H 10/05/18 12:00 Creatinine 1.2 mg/dL (0.55-1.3) 10/05/18 12:00 Est GFR (CKD-EPI)AfAm 81.23 10/05/18 12:00 Est GFR (CKD-EPI)NonAf 70.09 10/05/18 12:00 Random Glucose 99 mg/dL (74-106) 10/05/18 12:00 Calcium 9.2 mg/dL (8.5-10.1) 10/05/18 12:00 Total Bilirubin 0.2 mg/dL (0.2-1) 10/05/18 12:00 AST 66 U/L (15-37) H 10/05/18 12:00 ALT 36 U/L (13-61) 10/05/18 12:00 Alkaline Phosphatase 102 U/L (45-117) 10/05/18 12:00 Total Protein 8.0 g/dl (6.4-8.2) 10/05/18 12:00 Albumin 3.5 g/dl (3.4-5.0) 10/05/18 12:00 Urine Color Yellow 10/11/18 11:00 Urine Appearance Clear 10/11/18 11:00 Urine pH 8.5 (5.0-8.0) H D 10/11/18 11:00 Ur Specific [place] 1.011 (1.010-1.035) 10/11/18 11:00 Urine Protein Negative (NEGATIVE) 10/11/18 11:00 Urine Glucose (UA) Negative (NEGATIVE) 10/11/18 11:00 Urine Ketones Negative (NEGATIVE) 10/11/18 11:00 Urine Blood Trace (NEGATIVE) 10/11/18 11:00 Urine Nitrite Negative (NEGATIVE) 10/11/18 11:00 Urine Bilirubin Negative (NEGATIVE) 10/11/18 11:00 Urine Urobilinogen 0.2 mg/dL (0.2-1.0) 10/11/18 11:00 Ur Leukocyte Esterase Negative (NEGATIVE) 10/11/18 11:00 Urine WBC (Auto) 1 /hpf (0-5) 10/11/18 11:00 Urine RBC (Auto) 3 /hpf (0-4) 10/11/18 11:00 Urine Casts (Auto) 0 /lpf (0-8) 10/11/18 11:00 U Epithel Cells (Auto) 0.9 /HPF (0-5/HPF) 10/11/18 11:00 Urine Crystals (Auto) Calcium oxalate=2+ /hpf 10/09/18 09:00 Urine Bacteria (Auto) 1.9 /hpf (NEGATIVE) 10/11/18 11:00 Phenytoin 0.9 ug/ml (10.0-20.0) L 10/05/18 12:00 RPR Titer Nonreactive (NONREACTIVE) 10/05/18 12:00 HIV 1&2 Antibody Screen Negative 10/05/18 12:00 HIV P24 Antigen Negative 10/05/18 12:00 TB (QFT) Incubation (.) 10/05/18 14:00 TB Test (QFT) Nil 0.03 IU/mL (.) 10/05/18 14:00 TB Test (QFT) Mitogen >10.00 IU/mL (.) 10/05/18 14:00 TB Test (QFT) Antigen 0.03 IU/mL (.) 10/05/18 14:00 TB Test (QFT) Negative (Negative) 10/05/18 14:00 TB Positive Criteria (.) 10/05/18 14:00 patient signed release AMA
== END 2018-10-11 18:00 | disposition left against medical advice (07) | DRG 770 ==
LOC: YASAS 09:01 → Y5N 11:26
PROVIDERS: ADMIT Neuromusculoskeletal Medicine & OMM; ATTEND Neuromusculoskeletal Medicine & OMM
PROC: HZ42ZZZ Group Counseling for Substance Abuse Treatment, Cognitive-Behavioral (ICD-10-PCS; principal; 2018-10-05)
DX: F10.20 Alcohol dependence, uncomplicated (principal); F14.20 Cocaine dependence, uncomplicated; F20.0 Paranoid schizophrenia; F25.9 Schizoaffective disorder, unspecified; F19.24 Other psychoactive substance dependence with psychoactive substance-induced mood disorder; F19.282 Other psychoactive substance dependence with psychoactive substance-induced sleep disorder; G40.909 Epilepsy, unspecified, not intractable, without status epilepticus; J03.90 Acute tonsillitis, unspecified; Z91.14 Patient's other noncompliance with medication regimen; Z86.73 Personal history of transient ischemic attack (TIA), and cerebral infarction without residual deficits; Z59.0 Homelessness
CPT/HCPCS: 36415; 80053; 80185; 81003; 85027; 86480; 86593; 87389

== ENCOUNTER 2019-12-30 08:33 | Inpatient (IN) | payer OTHER ==
--- OUTSIDE RECORDS SUMMARY | 2019-12-30 08:37 | XMS ---
:1965 Author Organization [facility] Care Team Providers Name Role Phone MIGUEL DE OLIVEIRA MD Unavailable Unavailable Gamaliel DE OLIVEIRA MD Unavailable Unavailable Gamaliel DE OLIVEIRA MD Unavailable Unavailable Gamaliel DE OLIVEIRA MD Unavailable Unavailable Gamaliel DE OLIVEIRA MD Unavailable Unavailable ALVINO, M MD Unavailable Unavailable ALVINO, M MD Unavailable Unavailable ALVINO, M MD Unavailable Unavailable ALVINO, M MD Unavailable Unavailable Re-disclosure Warning The records that you are about to access may contain information from federally- assisted alcohol or drug abuse programs. If such information is present, then the following federally mandated warning applies: This information has been disclosed to you from records protected by federal confidentiality rules (42 CFR part 2). The federal rules prohibit you from making any further disclosure of this information unless further disclosure is expressly permitted by the written consent of the person to whom it pertains or as otherwise permitted by 42 CFR part 2. A general authorization for the release of medical or other information is NOT sufficient for this purpose. The Federal rules restrict any use of the information to criminally investigate or prosecute any alcohol or drug abuse patient.The records that you are about to access may contain highly sensitive health information, the redisclosure of which is protected by Article 27-F of the [place] Public [employer] law. If you continue you may haveaccess to information: Regarding HIV / AIDS; Provided by facilities licensed or operated by the [place] Office of Mental Health; or Provided by the [place] Office for People With Developmental Disabilities. If such information is present, then the following [place] mandated warning applies: This information has been disclosed to you from confidential records which are protected by state law. State law prohibits you from making any further disclosure of this information without the specific written consent of the person to whom it pertains, or as otherwise permitted by law. Any unauthorized further disclosure in violation of state law may result in a fine or shelter sentence or both. A general authorization for the release of medical or other information is NOT sufficient authorization for further disclosure. Encounters Encounter Providers Location Date Indications Data Source(s ) Outpatient 10/25/2019 [facility] 03:12:[facility]T Outpatient Referrer: MIGUEL 07/27[facility]2019 [facility] 02:49:15 [facility] EDT - 07/27/2019 12:00:00 AM EDT Outpatient 01/15/2016 [facility] 10:04:54 [facility] EST - 01/15/2016 12:00:00 AM EST Insurance Providers Payer name Policy type Policy ID Covered Covered green party's Policy P mina / Coverage green party ID relationship to [facility] ormation type little [employer] [id number] 2008 [id number] STRGY-AFF [place] [id number] SP [id number] METROPLUS SELF PAY UNAVAILABLE SELF UNAVAILA BLE CORRECTIONS B [id number] Self [id number] Results ID Date Data Source [id number] [facility]14[facility] TH[facility]ACIC AP LAT SWCLINICAL HISTORY: Back pain after fall.COMPARISON: None.T ECHNIQUE: Five views.FINDINGS: There is severe diffuse degenerative disc disease throughout the mid and lower thoracic spine. No definitive acute fracture, paraverte bral soft tissue swelling or malalignment is detected. There is a mild dextroscolios is.IMPRESSION: Marked thoracic degenerative disc disease and mild dextroscoliosis.Di ctated by: Coar ZHANG M.D. on 10/25/2019 Transcribed by: <<[email or web address] [email or web address]>> on 10/25/2019 03:19 PMCDS G code: ,CDS Modifier: ,cc: Name Value Range Interpretation Code Description Data Rosa Isela rce(s) Supporting Document(s ) ID Date Data Source [id number] 10/25/2019 03:13:00 PM [facility] LTD AP LAT OR ANY 2V OR 3VCLINICAL HISTORY: Back pain after fall.COMPARISO N: None.TECHNIQUE: Three views.FINDINGS: There is mild degenerative disc and face t disease from L2-3 through L5-S1. No acute fracture or significant malalignment is appreciated.IMPRESSION: Mild lumbar spine degenerative changes. No acute fracture appreciated.Dictated by: Cora ZHANG M.D. on 10/25/2019 Transcribed by: <<Transcriptionist_Ini [email or web address]>> on 10/25/2019 03:20 PMCDS G code: ,CDS Modifier: ,cc: Name Value Range Interpretation Code Description Data Rosa Isela rce(s) Supporting Document(s ) ID Date Data Source [id number] 07/27/2019 02:51:00 PM EDT [facility] THUMB RIGHTCLINICAL HISTORY: Thumb shut in door.COMPARISON: None.TECHNIQUE: Four views.FINDINGS: No acute fracture is identified. There are small osteophytes at the margins of the interphalangeal joint and trapezium first metacarpal articulat ion. Bone mineralization is grossly normal. No erosive changes are detected.IMPRESSI ON: Mild osteoarthritic changes. No acute fracture identified.Dictated by: Cora ZHANG M.D. on 07/27/2019 cc: Name Value Range Interpretation Code Description Data Rosa Isela rce(s) Supporting Document(s ) Procedure
--- NOTE | 2019-12-30 09:04 | BHS.RME ---
2019 N Coronavirus Screen - COVID-19 Screening Questions Dx of COVID-19 or had a positive test in the last 4 weeks?: No Contact with known/suspected COVID patient in last 14 days?: No Any of these symptoms or contact with someone who has?: None Traveled domestically/internationally in the last 14 days?: No Screen score: 0 Screen result: Further Evaluation Substance Use & Tx History - Substance Use History Alcohol Substance amount: one pint Vodka Frequency of use: Daily Substance route: Oral Date of Last Use: 12/30/19 (Began age 27 y. No seizures, no blackouts, no eyeopener) Cocaine-Crack Substance amount: $200 to 300 Frequency of use: Daily Substance route: Smoking Date of Last Use: 12/29/19 (Began age 42) Physical/Psych/Mental Status - Behavior General Behavior: Decreased activity Eye Contact: Normal - Cooperativeness Cooperativeness: Cooperative - Thinking Thought Processes: Tight Thought content: Future oriented - Physical Health Problems Is patient presently having any pain?: No Does patient presently have any injuries (include location): No Does patient currently have a fever: No CIWA Nausea/Vomitin-No Nausea/No Vomiting Muscle Tremors: 1-None Visible, but [place] Anxiety: 1-Mildly Anxious Agitation: 0-Normal Activity Paroxysmal Sweats: No Perspiration Orientation: 0-Oriented Tacttile Disturbances: 0-None Auditory Disturbances: 0-None Visual Disturbances: 0-None Headache: 0-None Present CIWA-Ar Total Score: 2
[2019-12-30 09:51] VITALS: TEMP 98; BMI 31.5
--- NOTE | 2019-12-30 14:04 | HP ---
CIWA Score Nausea/Vomitin-No Nausea/No Vomiting Muscle Tremors: 1-None Visible, but [place] Anxiety: 1-Mildly Anxious Agitation: 0-Normal Activity Paroxysmal Sweats: No Perspiration Orientation: 0-Oriented Tacttile Disturbances: 0-None Auditory Disturbances: 0-None Visual Disturbances: 0-None Headache: 0-None Present CIWA-Ar Total Score: 2 - Admission Criteria OASAS Guidelines: Admission for Medically Managed Detox: Requires at least one of the followin. CIWA greater than 12 2. Seizures within the past 24 hours 3. Delirium tremens within the past 24 hours 4. Hallucinations within the past 24 hours 5. Acute intervention needed for co occurring medical disorder 6. Acute intervention needed for co occurring psychiatric disorder 7. Severe withdrawal that cannot be handled at a lower level of care (continued vomiting, continued diarrhea, abnormal vital signs) requiring intravenous medication and/or fluids 8. Admitting History and Physical - Smoking History Smoking history: Never smoked Have you smoked in the past 12 months: No Aproximately how many cigarettes per day: 10 - Alcohol/Substance Use Hx Alcohol Use: Yes Admission ROS [facility] Chief Complaint: "I want to change my life around. I need to stop." Allergies/Adverse Reactions: Allergies Allergy/AdvReac Type Severity Reaction Status Date / Time tomato Allergy Rash Verified 10/06/18 17:13 History of Present Illness: 54 year old male with history of alcohol dependence, cocaine use disorder, cannabis use disorder, and nicotine dependence seeking rehab services. - Substance Use History Alcohol Substance amount: one pint Vodka Frequency of use: Daily Substance route: Oral Date of Last Use: 12/30/19 (Began age 27 y. No seizures, no blackouts, no eyeopener) Cocaine-Crack Substance amount: $200 to 300 Frequency of use: Daily Substance route: Smoking Date of Last Use: 12/29/19 (Began age 42) PMH: Petit mal seizures in past Psurg: Right Ankle Fx 15 years ago Psych: Bipolar, Schizophrenia He is homeless and living on the streets. He is on parole for grand larceny in 3rd degree and robbery 4th degree. urine tox: THC, MINA CATALINA=0 CIWA=2 He meets criteria for rehab as he has a poor recovery environment, has poor judgment and insight into his disease, and needs CD services and has psychiatric comorbidity. Exam Limitations: No Limitations - Ebola screening Have you traveled outside of the country in the last 21 days: No Have you had contact with anyone from an Ebola affected area: No Have you been sick,other than usual withdrawal symptoms: No Do you have a fever: No - Review of Systems Constitutional: No Symptoms Reported EENT: reports: No Symptoms Reported Respiratory: reports: No Symptoms reported Cardiac: reports: No Symptoms Reported GI: reports: No Symptoms Reported : reports: No Symptoms Reported Musculoskeletal: reports: No Symptoms Reported Integumentary: reports: No Symptoms Reported Neuro: reports: No Symptoms reported Endocrine: reports: No Symptoms Reported Hematology: reports: No Symptoms Reported Psychiatric: reports: No Sypmtoms Reported, Mood/Affect Appropiate, Orientated x3, Anxious Other Systems: Reviewed and Negative Patient History - Patient Medical History Hx Anemia: No Hx Asthma: Yes (childhood asthma) Hx Chronic Obstructive Pulmonary Disease (COPD): No Hx Cancer: No Hx Cardiac Disorders: No Hx Congestive Heart Failure: No Hx Hypertension: No Hx Hypercholesterolemia: No Hx Pacemaker: No HX Cerebrovascular Accident: No Hx Seizures: Yes (Last Episode 09/24) Hx Dementia: No Hx Diabetes: No Hx Gastrointestinal Disorders: No Hx Liver Disease: No Hx Genitourinary Disorders: No Hx Sexually Transmitted Disorders: No Hx Renal Disease (ESRD): No Hx Thyroid Disease: No Hx Human Immunodeficiency Virus (HIV): No (LAST 2014 negative) Hx Hepatitis C: No Hx Depression: No Hx Suicide Attempt: No Hx Bipolar Disorder: Yes (non compliance) Hx Schizophrenia: Yes - Patient Surgical History Past Surgical History: Yes Hx Neurologic Surgery: No Hx Cataract Extraction: No Hx Cardiac Surgery: No Hx Lung Surgery: No Hx Breast Surgery: No Hx Breast Biopsy: No Hx Abdominal Surgery: No Hx Appendectomy: No Hx Cholecystectomy: No Hx Genitourinary Surgery: No Hx Section: No Hx Orthopedic Surgery: Yes (RIGHT ANKLE 15 YEARS AGO) Anesthesia Reaction: No - PPD History Date: 02/09/16 Results: 0 mm - Smoking Cessation Smoking history: Never smoked Have you smoked in the past 12 months: No Aproximately how many cigarettes per day: 10 Hx Chewing Tobacco Use: No - Substances abused Alcohol Substance route: Oral Frequency: Daily Amount used: 1 pint vodka Age of first use: 27 Date of last use: 12/29/19 Crack Substance route: Smoking Frequency: Daily Amount used: $200-300 Age of first use: 42 Date of last use: 12/29/19 Marijuana/Hashish Substance route: Smoking Frequency: 1-3 times last 30 days Amount used: 1 blunt Age of first use: 22 Date of last use: 12/28/19 Admission Physical Exam [facility] - Vital Signs Vital Signs: Vital Signs - 24 hr 12/30/19 09:49 Temperature 98.0 F Pulse Rate 76 Respiratory 18 Rate Blood Pressure 118/76 - Physical General Appearance: Yes: No Apparent Distress HEENTM: Yes: EOMI, Hearing grossly Normal, Normal ENT Inspection, Normocephalic, Normal Voice, SCAR, Pharynx Normal, Tm's normal Respiratory: Yes: Chest Non-Tender, Lungs Clear, Normal Breath Sounds, No Respiratory Distress, No Accessory Muscle Use Neck: Yes: No masses,lesions,Nodules, Supple, Trachea in good position Breast: Yes: Within Normal Limits Cardiology: Yes: Regular Rhythm, Regular Rate, S1, S2 Genitourinary: Yes: Within Normal Limits Back: Yes: Normal Inspection Musculoskeletal: Yes: full range of Motion, Gait Steady, Pelvis Stable Extremities: Yes: Normal Capillary Refill, Normal Inspection, Normal Range of Motion, Non-Tender 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: 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: 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 NML intact, Fully Oriented, Alert, Motor Strength 5/5, Normal Mood/Affect, Normal Response Integumentary: Yes: Normal Color, Warm Lymphatic: Yes: Within Normal Limits - Diagnostic (1) Cannabis use disorder, mild, abuse Current Visit: Yes Status: Acute (2) Alcohol dependence Current Visit: Yes Status: Acute (3) Cocaine dependence Current Visit: Yes Status: Acute (4) Head trauma Current Visit: Yes Status: Acute (5) Seizure Current Visit: Yes Status: Acute (6) Nicotine dependence Current Visit: Yes Status: Chronic (7) Paranoid schizophrenia Current Visit: Yes Status: Chronic (8) Seizure disorder Current Visit: Yes Status: Chronic Cleared for Admission [facility] - Detox or Rehab [facility] Level of Care: Medically Supervised Detox Regimen/Protocol: Not Applicable Claeared for Rehab Admission: Yes Breathalyzer - Breathalyzer Breathalyzer: 0 Urine Drug Screen - Test Device Lot number: [id number] Expiration date: 06/15/21 - Control Is test valid?: Yes - Results Drug screen NEGATIVE: No Urine drug screen results: THC-Marijuana, MINA-Cocaine Inpatient Rehab Admission - Rehab Decision to Admit Inpatient rehab admission?: Yes - Initial Determination Are CD services needed?: Yes Free of communicable disease: Yes Not in need of hospitalization: Yes - Rehab Admission Criteria Previous failed treatment: Yes Poor recovery environment: Yes Comorbidities: Yes Lacks judgement: Yes Patient is meeting Inpatient Rehab admission criteria:: Yes
[2019-12-30] MEDS ORDERED: P-EPHED 60MG/TRIPROLIDI 2.5MG TABLET PO PRN (14:17)
[2019-12-30] MEDS ORDERED: NICOTINE POLACRILEX 2 MG GUM BUC PRN (14:17)
[2019-12-30] MEDS ORDERED: MAGNESIUM HYDROX 2400MG/30ML ORAL SUSPENSION 30 ML CUP PO PRN (14:17)
[2019-12-30] MEDS ORDERED: LOPERAMIDE HCL 2 MG CAPSULE PO PRN (14:17)
[2019-12-30] MEDS ORDERED: MAG HYDROX/AL HYDROX/SIMETH 30 ML UNIT-DOSE CUP PO PRN (14:17)
[2019-12-30] MEDS ORDERED: ACETAMINOPHEN 325 MG TABLET (FP) PO PRN (14:17)
[2019-12-30] MEDS ORDERED: guaiFENesin 200 MG/10 ML 10 ML UNIT-DOSE CUPS PO PRN (14:17)
[2019-12-30] MEDS ORDERED: MAGNESIUM CITRATE 300 ML BOTTLE PO PRN (14:17)
[2019-12-30] MEDS ORDERED: IBUPROFEN 400 MG TABLET (FP) PO PRN (14:17)
--- OUTSIDE RECORDS SUMMARY | 2019-12-30 14:19 | XMS ---
:1965 Author Organization [facility] Care Team Providers Name Role Phone MIGUEL [...] is protected by Article 27-F of the [facility] Public Health law. If you continue you may haveaccess to information: Regarding HIV / AIDS; Provided by facilities licensed or operated by the [facility] Office of Mental Health; or Provided by the [facility] Office for People With Developmental Disabilities. If such information is present, then the following [facility] mandated warning applies: This information has been [...] law may result in a fine or group home sentence or both. A general authorization for the release of medical or other information is NOT sufficient authorization for further disclosure. Encounters Encounter Providers Location Date Indications Data Source(s ) Outpatient 10/25/2019 [facility] 03:12[facility] EDT Outpatient Referrer: MIGUEL [facility] 02:49:15 [facility] EDT - 07/27/2019 12:00:00 AM EDT Outpatient 01/15/2016 [facility] 10:04:54 [facility] EST - 01/15/2016 12:00:00 AM EST Insurance Providers Payer name Policy type Policy ID Covered Covered republican's Policy P mina / Coverage republican ID relationship to Little Inf ormation type little Magisto [facility] [id number] 2008 [id number] STRGY-AFF [place] [id number] SP [id number] METROPLUS SELF PAY UNAVAILABLE SELF UNAVAILA BLE CORRECTIONS B [id number] Self [id number] Results ID Date Data Source [id number] [facility]/25[facility]2019 03:14[facility] TH[facility]ACIC AP LAT SWCLINICAL HISTORY: Back pain after fall.COMPARISON: None.T ECHNIQUE: Five views.FINDINGS: There is severe diffuse degenerative disc disease throughout the mid and lower thoracic spine. No definitive acute fracture, paraverte bral soft tissue swelling or malalignment is detected. There is a mild dextroscolios is.IMPRESSION: Marked thoracic degenerative disc disease and mild dextroscoliosis.Di ctated by: Cora ZHANG M.D. on 10/25/2019 Transcribed by: <<Transcriptionist_Ini [email or web address]>> on 10/25/2019 03:19 PMCDS G code: ,CDS Modifier: ,cc: Name Value Range Interpretation Code Description Data Rosa Isela rce(s) Supporting Document(s ) ID Date Data Source [id number] [facility]2019 [facility]:13[facility] LAT OR [...] Supporting Document(s ) ID Date Data Source [id number] 07/27/2019 02:51:00 PM ED[facility] THUMB RIGHTCLINICAL HISTORY: Thumb shut in [...]
[2019-12-30] MEDS: NICOTINE 7 MG/24 HOURS TOPICAL PATCH TD SCH (15:19)
[2019-12-30] MEDS: PRENATAL VITAMINS W/ FOLIC ACID TABLET (FP) PO SCH (15:19)
[2019-12-30] MEDS ORDERED: TUBERCULIN PPD 5 TU/0.1ML VIAL ID ONE (15:22)
[2019-12-30] MEDS: hydrOXYzine PAMOATE 25 MG CAPSULE (FP) PO SCH ×2 (17:51→22:42)
[2019-12-30] MEDS: MELATONIN 5 MG TABLETS PO SCH (22:42)
[2019-12-30] MEDS: THIAMINE HCL 100 MG TABLET (FP) PO SCH (22:43)
[2019-12-31] MEDS: hydrOXYzine PAMOATE 25 MG CAPSULE (FP) PO SCH ×5 (06:54→22:11)
--- NOTE | 2019-12-31 10:03 | PN ---
[facility] Progress Note Note: Pt is a 54 y/o male with a hx of MARTINEZ-alcohol,cocaine,marijuana admitted to rehab through [facility] on 12/30/19. PMHx:Seizure-petit mal(last in 2018); Childhood Asthma, Right ankle Fx 15 years ago Psych Hx:Bipolar Disoder/ Schizophrenia(no meds-noncompliance)-pt states "no more of that" declined any psych f/u at this time and pt appears stable with no current s/h/i. Vital Signs - 24 hr 12/30/19 12/30/19 12/30/19 15:36 16:03 19:44 Temperature 98.0 F 98.0 F Pulse Rate 74 74 Respiratory 18 18 Rate Blood Pressure 136/71 136/71 O2 Sat by Pulse 97 97 95 Oximetry (%) 12/31/19 06:45 Temperature Pulse Rate Respiratory Rate Blood Pressure O2 Sat by Pulse 95 Oximetry (%) Alert o x 3 nad, no resp difficulty(states he does not use inhaler and childhood asthma "went away a long time") oob ambulating with steady gait extremities:Active FROM, all limbs; skin warm, dry, intact(denies any discomfort at this time) New Rehab pt MARTINEZ Increase po fluids maintain safety
[2019-12-31] MEDS: PRENATAL VITAMINS W/ FOLIC ACID TABLET (FP) PO SCH (10:12)
[2019-12-31] MEDS: NICOTINE 7 MG/24 HOURS TOPICAL PATCH TD SCH (10:12)
[2019-12-31 10:28] LABS: POTASSIUM 3.7 mmol/L (3.5-5.1)
[2019-12-31 10:31] LABS: ALBUMIN 2.7 g/dl (3.4-5.0); BLOOD UREA NITROGEN 8.8 mg/dL (7-18); CALCIUM 8.7 mg/dL (8.5-10.1)
[2019-12-31 10:35] LABS: HEMATOCRIT 35.2 % (35.4-49); HEMOGLOBIN 11.7 GM/dL (11.7-16.9); MCH 28.7 pg (25.7-33.7); MCHC 33.1 g/dl (32.0-35.9); MEAN CELL VOLUME 86.7 fl (80-96); MEAN PLT VOLUME 8.6 fl (7.5-11.1); PLATELET COUNT 226 K/MM3 (134-434); RBC 4.06 M/mm3 (4.00-5.60); WHITE BLOOD COUNT 5.9 K/mm3 (4.0-10.0)
[2019-12-31 10:36] LABS: BILIRUBIN,TOTAL 0.4 mg/dL (0.2-1); TOT PROT 5.8 g/dl (6.4-8.2)
[2019-12-31 11:22] LABS: SICKLE CELL SCREEN NEGATIVE (NEGATIVE)
[2019-12-31 16:58] LABS: EPI CELLS 2 /uL (0-25.1); HYALINE CASTS 0 /uL (0-3.1); URINE APPEARANCE CLEAR; URINE BACTERIA 3 /uL (0-1359); URINE BILIRUBIN NEGATIVE (NEGATIVE); URINE COLOR YELLOW; URINE GLUCOSE (UA) NEGATIVE (NEGATIVE); URINE KETONE NEGATIVE (NEGATIVE); URINE LEUK ESTERASE NEGATIVE (NEGATIVE); URINE NITRITE NEGATIVE (NEGATIVE); URINE PROTEIN NEGATIVE (NEGATIVE); URINE RBC 13 /uL (0-23.9); URINE UROBILINOGEN 0.2 mg/dL (0.2-1.0); URINE WBC 3 /uL (0-25.8)
[2019-12-31] MEDS: MELATONIN 5 MG TABLETS PO SCH (22:11)
[2019-12-31] MEDS: THIAMINE HCL 100 MG TABLET (FP) PO SCH (22:11)
[2020-01-01 07:00] VITALS: BP 141/71; PULSE 72
[2020-01-01] MEDS: hydrOXYzine PAMOATE 25 MG CAPSULE (FP) PO SCH ×2 (07:01→10:49)
[2020-01-01] MEDS: PRENATAL VITAMINS W/ FOLIC ACID TABLET (FP) PO SCH (10:49)
[2020-01-01] MEDS: NICOTINE 7 MG/24 HOURS TOPICAL PATCH TD SCH (10:49)
--- NOTE | 2020-01-01 12:22 | PN ---
[facility] Progress Note Note: informed by Amalia Cox RN that patient want to leave the unit, patient seen declined to give the reason,,all attempts to convince patient to stay with no avail, patient signed release against medical advise
--- NOTE | 2020-01-01 12:22 | DS ---
[facility] Rehab Discharge Summary - [facility] Rehab Discharge Summary Admission Date: 12/30/19 Discharge Date: 01/01/20 - History Present History: Alcohol dependence, Cannabis dependence, Cocaine dependence Pertinent Past History: seizure childhood asthma history of bipolar disorder,schizophrenia - Discharge Physical Exam Vital Signs: Vital Signs Temperature 98.0 F 01/01/20 06:57 Pulse Rate 72 01/01/20 06:57 Respiratory Rate 18 01/01/20 06:57 Blood Pressure 141/71 01/01/20 06:57 O2 Sat by Pulse Oximetry (%) 96 01/01/20 06:57 Pertinent Admission Physical Exam Findings: essentially within normal limit Laboratory Last Values WBC 5.9 K/mm3 (4.0-10.0) 12/31/19 07:30 RBC 4.06 M/mm3 (4.00-5.60) 12/31/19 07:30 Hgb 11.7 GM/dL (11.7-16.9) 12/31/19 07:30 Hct 35.2 % (35.4-49) L 12/31/19 07:30 MCV 86.7 fl (80-96) 12/31/19 07:30 MCH 28.7 pg (25.7-33.7) 12/31/19 07:30 MCHC 33.1 g/dl (32.0-35.9) 12/31/19 07:30 RDW 14.0 % (11.9-15.9) 12/31/19 07:30 Plt Count 226 K/MM3 (134-434) D 12/31/19 07:30 MPV 8.6 fl (7.5-11.1) 12/31/19 07:30 Sickle Cell Screen Negative (NEGATIVE) 12/31/19 07:30 Sodium 141 mmol/L (136-145) 12/31/19 07:30 Potassium 3.7 mmol/L (3.5-5.1) 12/31/19 07:30 Chloride 107 mmol/L (98-107) 12/31/19 07:30 Carbon Dioxide 30 mmol/L (21-32) 12/31/19 07:30 Anion Gap 4 MMOL/L (8-16) L 12/31/19 07:30 BUN 8.8 mg/dL (7-18) 12/31/19 07:30 Creatinine 1.0 mg/dL (0.55-1.3) 12/31/19 07:30 Est GFR (CKD-EPI)AfAm 99.85 12/31/19 07:30 Est GFR (CKD-EPI)NonAf 86.15 12/31/19 07:30 Random Glucose 124 mg/dL (74-106) H 12/31/19 07:30 Calcium 8.7 mg/dL (8.5-10.1) 12/31/19 07:30 Total Bilirubin 0.4 mg/dL (0.2-1) 12/31/19 07:30 AST 26 U/L (15-37) 12/31/19 07:30 ALT 31 U/L (13-61) 12/31/19 07:30 Alkaline Phosphatase 88 U/L (45-117) 12/31/19 07:30 Total Protein 5.8 g/dl (6.4-8.2) L 12/31/19 07:30 Albumin 2.7 g/dl (3.4-5.0) L 12/31/19 07:30 Urine Color Yellow 12/31/19 15:00 Urine Appearance Clear 12/31/19 15:00 Urine pH 5.0 (5.0-8.0) D 12/31/19 15:00 Ur Specific [place] 1.016 (1.010-1.035) 12/31/19 15:00 Urine Protein Negative (NEGATIVE) 12/31/19 15:00 Urine Glucose (UA) Negative (NEGATIVE) 12/31/19 15:00 Urine Ketones Negative (NEGATIVE) 12/31/19 15:00 Urine Blood 2+ (NEGATIVE) H 12/31/19 15:00 Urine Nitrite Negative (NEGATIVE) 12/31/19 15:00 Urine Bilirubin Negative (NEGATIVE) 12/31/19 15:00 Urine Urobilinogen 0.2 mg/dL (0.2-1.0) 12/31/19 15:00 Ur Leukocyte Esterase Negative (NEGATIVE) 12/31/19 15:00 Urine WBC (Auto) 3 /uL (0-25.8) 12/31/19 15:00 Urine RBC (Auto) 13 /uL (0-23.9) 12/31/19 15:00 Urine Casts (Auto) 0 /uL (0-3.1) 12/31/19 15:00 U Epithel Cells (Auto) 2 /uL (0-25.1) 12/31/19 15:00 Urine Bacteria (Auto) 3 /uL (0-1359) 12/31/19 15:00 Syphilis Serology Non-reactive (NONREACTIVE) 12/31/19 07:30 SARS-CoV-2 (PCR) Negative (Negative) 12/30/19 09:30 - Treatment Discharge Condition: Discharge condition good - Medication Discharge Medications: Ambulatory Orders NK [No Known Home Medication] 12/30/19 - Medication-Assisted Treatment (MAT) Medication-Assisted Treatment (MAT): No - Discharge Instructions Diet, activity, other medical instructions: Diet: Activity: Other medical instructions: - Diagnosis (1) Alcohol dependence Status: Acute (2) Cannabis use disorder, mild, abuse Status: Acute (3) Cocaine dependence Status: Acute (4) Seizure Status: Acute (5) History of schizophrenia Status: Acute (6) History of bipolar disorder Status: Acute - Follow-up Referral Minutes to complete discharge: 30 - AMA Did Patient Leave Against Medical Advice: Yes Additional Comments: alert,oriented x 3 ambulation on the unit lung clear no abdominal pain no edema of legs patient signed release against medical advise,no suicidal,no homicidal ideation left the unit in stable condition total time spending on discharge 30 minutes
== END 2020-01-01 12:15 | disposition left against medical advice (07) | DRG 770 ==
LOC: YASAS 08:33 → Y5N 14:15
PROVIDERS: ADMIT Allergy & Immunology; ATTEND Allergy & Immunology
PROC: HZ42ZZZ Group Counseling for Substance Abuse Treatment, Cognitive-Behavioral (ICD-10-PCS; principal; 2019-12-30)
DX: F10.20 Alcohol dependence, uncomplicated (principal); F14.20 Cocaine dependence, uncomplicated; F12.10 Cannabis abuse, uncomplicated; F31.9 Bipolar disorder, unspecified; F20.9 Schizophrenia, unspecified; J45.909 Unspecified asthma, uncomplicated; Z86.69 Personal history of other diseases of the nervous system and sense organs; Z87.81 Personal history of (healed) traumatic fracture; Z91.018 Allergy to other foods; Z59.0 Homelessness
CPT/HCPCS: 36415; 80053; 81003; 85027; 85660; 86780; C9803; U0003

== ENCOUNTER 2020-10-17 08:30 | Inpatient (IN) | payer OTHER ==
[2020-10-17 10:27] VITALS: BMI 26.1
[2020-10-17] MEDS ORDERED: MAG HYDROX/AL HYDROX/SIMETH 30 ML UNIT-DOSE CUP PO PRN (15:44)
[2020-10-17] MEDS ORDERED: MAGNESIUM CITRATE 300 ML BOTTLE PO PRN (15:44)
[2020-10-17] MEDS ORDERED: LOPERAMIDE HCL 2 MG CAPSULE PO PRN (15:44)
[2020-10-17] MEDS ORDERED: IBUPROFEN 400 MG TABLET (FP) PO PRN (15:44)
[2020-10-17] MEDS ORDERED: ACETAMINOPHEN 325 MG TABLET (FP) PO PRN (15:44)
[2020-10-17] MEDS ORDERED: guaiFENesin 200 MG/10 ML 10 ML UNIT-DOSE CUPS PO PRN (15:44)
[2020-10-17] MEDS ORDERED: MAGNESIUM HYDROX 2400MG/30ML ORAL SUSPENSION 30 ML CUP PO PRN (15:44)
[2020-10-17] MEDS ORDERED: P-EPHED 60MG/TRIPROLIDI 2.5MG TABLET PO PRN (15:44)
[2020-10-18] MEDS: NICOTINE 7 MG/24 HOURS TOPICAL PATCH TD SCH ×2 (06:08→11:12)
[2020-10-18] MEDS: hydrOXYzine PAMOATE 25 MG CAPSULE (FP) PO SCH ×6 (06:08→22:29)
[2020-10-18] MEDS: PRENATAL VITAMINS W/ FOLIC ACID TABLET (FP) PO SCH ×2 (06:08→11:12)
[2020-10-18] MEDS: MELATONIN 5 MG TABLETS PO SCH ×2 (06:09→22:29)
[2020-10-18] MEDS: THIAMINE HCL 100 MG TABLET (FP) PO SCH ×2 (06:09→22:28)
[2020-10-18] MEDS: NICOTINE 10 MG CARTRIDGE (INHALER) IH PRN ×2 (11:13→22:29)
[2020-10-18] MEDS: PHENYTOIN NA EXTENDED 100 MG CAPSULE (FP) PO SCH (22:26)
[2020-10-19] MEDS: hydrOXYzine PAMOATE 25 MG CAPSULE (FP) PO SCH ×4 (06:48→18:08)
[2020-10-19] MEDS: PHENYTOIN NA EXTENDED 100 MG CAPSULE (FP) PO SCH ×2 (06:48→14:29)
[2020-10-19 07:17] VITALS: BP 154/95; PULSE 62; TEMP 97.6
[2020-10-19] MEDS: NICOTINE 7 MG/24 HOURS TOPICAL PATCH TD SCH (09:55)
[2020-10-19] MEDS: PRENATAL VITAMINS W/ FOLIC ACID TABLET (FP) PO SCH (09:55)
[2020-10-19] MEDS: NICOTINE 10 MG CARTRIDGE (INHALER) IH PRN (09:57)
[2020-10-19] MEDS ORDERED: ARIPiprazole 5 MG TABLET ONE (12:31)
[2020-10-19] MEDS: ARIPiprazole 10 MG TABLET PO SCH (12:33)
[2020-10-20] MEDS: THIAMINE HCL 100 MG TABLET (FP) PO SCH (00:40)
[2020-10-20] MEDS: hydrOXYzine PAMOATE 25 MG CAPSULE (FP) PO SCH ×5 (00:40→17:12)
[2020-10-20] MEDS: PHENYTOIN NA EXTENDED 100 MG CAPSULE (FP) PO SCH ×3 (00:40→14:24)
[2020-10-20] MEDS: MELATONIN 5 MG TABLETS PO SCH (00:40)
[2020-10-20] MEDS ORDERED: ARIPiprazole 5 MG TABLET ONE (08:37)
[2020-10-20] MEDS: NICOTINE 7 MG/24 HOURS TOPICAL PATCH TD SCH (10:57)
[2020-10-20] MEDS: PRENATAL VITAMINS W/ FOLIC ACID TABLET (FP) PO SCH (10:57)
[2020-10-20] MEDS: ARIPiprazole 10 MG TABLET PO SCH (10:57)
== END 2020-10-20 17:00 | disposition left against medical advice (07) | DRG 770 ==
LOC: YASAS 08:30 → Y5N 16:28
PROVIDERS: ADMIT Allergy & Immunology; ATTEND Allergy & Immunology
PROC: HZ2ZZZZ Detoxification Services for Substance Abuse Treatment (ICD-10-PCS; principal; 2020-10-17)
DX: F10.20 Alcohol dependence, uncomplicated (principal); F14.20 Cocaine dependence, uncomplicated; F12.20 Cannabis dependence, uncomplicated; F17.210 Nicotine dependence, cigarettes, uncomplicated; F19.24 Other psychoactive substance dependence with psychoactive substance-induced mood disorder; J45.909 Unspecified asthma, uncomplicated; R56.1 Post traumatic seizures; R01.1 Cardiac murmur, unspecified; I25.10 Atherosclerotic heart disease of native coronary artery without angina pectoris; Z62.810 Personal history of physical and sexual abuse in childhood; Z95.5 Presence of coronary angioplasty implant and graft; Z86.73 Personal history of transient ischemic attack (TIA), and cerebral infarction without residual deficits; Z91.5 Personal history of self-harm; Z59.0 Homelessness; Z91.018 Allergy to other foods
CPT/HCPCS: 36415; 86780; 93005; 93010; C9803; U0003; U0005

== ENCOUNTER 2020-10-17 20:29 | Emergency (ER) | payer OTHER ==
[2020-10-17 21:19] VITALS: BMI 29.2
[2020-10-17 22:44] LABS: BASO % 0.9 % (0-2.0); EOS % 3.2 % (0-4.5); HEMATOCRIT 33.9 % (35.4-49); HEMOGLOBIN 11.5 GM/dL (11.7-16.9); LYMPH % 48.2 % (8-40); MCH 29.6 pg (25.7-33.7); MEAN CELL VOLUME 87.1 fl (80-96); MEAN PLT VOLUME 7.1 fl (7.5-11.1); MONO % 12.8 % (3.8-10.2); NEUT % 34.9 % (42.8-82.8); PLATELET COUNT 233 10^3/uL (134-434); RBC 3.89 M/mm3 (4.00-5.60); RDW 14.1 % (11.9-15.9); WHITE BLOOD COUNT 5.6 K/mm3 (4.0-10.0)
[2020-10-17 23:12] LABS: CALCIUM 8.5 mg/dL (8.5-10.1)
[2020-10-17 23:14] LABS: ALBUMIN 3.2 g/dl (3.4-5.0); BLOOD UREA NITROGEN 17.3 mg/dL (7-18)
[2020-10-17 23:17] LABS: BILIRUBIN,TOTAL 0.1 mg/dL (0.2-1)
[2020-10-17 23:18] LABS: TOT PROT 6.6 g/dl (6.4-8.2)
[2020-10-18 04:13] VITALS: BP 136/86; PULSE 75; TEMP 98.3
== END 2020-10-18 04:10 | disposition home or self-care (01) ==
LOC: JER 20:29
DX: R94.31 Abnormal electrocardiogram [ECG] [EKG] (principal); F10.20 Alcohol dependence, uncomplicated
CPT/HCPCS: 36415; 71046-TC-FY; 80053; 82550; 82553; 84484; 85025; 93005; 93010; 99285-25

== ENCOUNTER 2023-01-28 10:41 | Inpatient (IN) | payer OTHER ==
[2023-01-28 11:37] VITALS: BMI 27.2
[2023-01-28] MEDS ORDERED: ACETAMINOPHEN 325 MG TABLET (FP) PO PRN (12:27)
[2023-01-28] MEDS ORDERED: LOPERAMIDE HCL 2 MG CAPSULE PO PRN (12:27)
[2023-01-28] MEDS ORDERED: hydrOXYzine PAMOATE 25 MG CAPSULE (FP) PO PRN (12:27)
[2023-01-28] MEDS ORDERED: MAGNESIUM HYDROX 2400MG/30ML ORAL SUSPENSION 30 ML CUP PO PRN (12:27)
[2023-01-28] MEDS ORDERED: NALOXONE HCL 0.4 MG/ML VIAL IM PRN (12:27)
[2023-01-28] MEDS ORDERED: MAG HYDROX/AL HYDROX/SIMETH 30 ML UNIT-DOSE CUP PO PRN (12:27)
[2023-01-28] MEDS ORDERED: NALOXONE HCL (KLOXXADO) 8 MG SPRAY NS PRN (12:27)
[2023-01-28] MEDS ORDERED: guaiFENesin 600 MG TABLET.ER (FP) PO PRN (12:27)
[2023-01-28] MEDS ORDERED: COLLOIDAL OATMEAL 1 BAR EACH TP PRN (12:27)
[2023-01-28] MEDS ORDERED: BENZOCAINE/MENTHOL (CHLORASEPTIC ) LOZENGE MM PRN (12:27)
[2023-01-28] MEDS ORDERED: POLYETHYLENE GLYCOL (HEALTHYLAX) 3350 17 GM PACKET PO PRN (12:27)
[2023-01-28] MEDS ORDERED: BENZONATATE 200 MG CAPSULE PO PRN (12:27)
[2023-01-28] MEDS ORDERED: PRENATAL VITAMINS W/ FOLIC ACID TABLET (FP) PO ONE (14:32)
[2023-01-28] MEDS: PRENATAL VITAMINS W/ FOLIC ACID TABLET (FP) PO SCH (14:34)
[2023-01-28] MEDS ORDERED: TUBERCULIN PPD 5 TU/0.1ML SYRINGE (IN PATIENT USE ONLY) ID ONE (16:31)
[2023-01-28] MEDS: THIAMINE HCL 100 MG TABLET (FP) PO SCH (21:36)
[2023-01-28] MEDS: MELATONIN 5 MG TABLETS PO SCH (21:36)
[2023-01-28] MEDS: NICOTINE POLACRILEX 4 MG GUM BUC PRN (21:37)
[2023-01-29 08:29] LABS: POTASSIUM 4.3 mmol/L (3.5-5.1)
[2023-01-29 08:34] LABS: CALCIUM 8.7 mg/dL (8.5-10.1)
[2023-01-29 08:35] LABS: ALBUMIN 2.9 g/dl (3.4-5.0); BLOOD UREA NITROGEN 16.5 mg/dL (7-18)
[2023-01-29 08:39] LABS: CREATININE 1.1 mg/dL (0.55-1.3); TOT PROT 6.5 g/dl (6.4-8.2)
[2023-01-29 08:40] LABS: BILIRUBIN,TOTAL 0.3 mg/dL (0.2-1); HEMATOCRIT 32.6 % (35.4-49); HEMOGLOBIN 10.6 GM/dL (11.7-16.9); MCH 27.3 pg (25.7-33.7); MCHC 32.5 g/dl (32.0-35.9); PLATELET COUNT 344 10^3/uL (134-434); RBC 3.88 M/mm3 (4.00-5.60); RDW 14.5 % (11.9-15.9); WHITE BLOOD COUNT 5.2 K/mm3 (4.0-10.0)
[2023-01-29] MEDS: NICOTINE 7 MG/24 HOURS TOPICAL PATCH TD SCH (10:49)
[2023-01-29] MEDS: PRENATAL VITAMINS W/ FOLIC ACID TABLET (FP) PO SCH (10:49)
[2023-01-29 13:44] LABS: SYPHILIS W/ RPR CONF NON-REACTIVE (NONREACTIVE)
[2023-01-29] MEDS: MELATONIN 5 MG TABLETS PO SCH ×2 (21:27→21:35)
[2023-01-29] MEDS: THIAMINE HCL 100 MG TABLET (FP) PO SCH ×2 (21:27→21:35)
[2023-01-29] MEDS: NICOTINE POLACRILEX 4 MG GUM BUC PRN (21:29)
[2023-01-30] MEDS: PRENATAL VITAMINS W/ FOLIC ACID TABLET (FP) PO SCH (10:07)
[2023-01-30] MEDS: NICOTINE 7 MG/24 HOURS TOPICAL PATCH TD SCH (10:07)
[2023-01-30] MEDS: NICOTINE POLACRILEX 4 MG GUM BUC PRN (10:07)
[2023-01-30] MEDS: MELATONIN 5 MG TABLETS PO SCH (21:33)
[2023-01-30] MEDS: THIAMINE HCL 100 MG TABLET (FP) PO SCH (21:33)
[2023-01-31] MEDS: PRENATAL VITAMINS W/ FOLIC ACID TABLET (FP) PO SCH (10:08)
[2023-01-31] MEDS: NICOTINE 7 MG/24 HOURS TOPICAL PATCH TD SCH (10:08)
[2023-01-31] MEDS: PHENYTOIN NA EXTENDED 100 MG CAPSULE (FP) PO SCH ×2 (15:47→21:42)
[2023-01-31] MEDS: MELATONIN 5 MG TABLETS PO SCH (21:42)
[2023-01-31] MEDS: THIAMINE HCL 100 MG TABLET (FP) PO SCH (21:42)
[2023-02-01] MEDS: PHENYTOIN NA EXTENDED 100 MG CAPSULE (FP) PO SCH ×3 (06:16→21:34)
[2023-02-01] MEDS: PRENATAL VITAMINS W/ FOLIC ACID TABLET (FP) PO SCH (10:23)
[2023-02-01] MEDS: NICOTINE 7 MG/24 HOURS TOPICAL PATCH TD SCH (10:23)
[2023-02-01 12:24] LABS: EPI CELLS 0 /uL (0-25.1); HYALINE CASTS 0 /uL (0-3.1); PH,URINE 5.5 (5.0-8.0); URINE APPEARANCE CLEAR; URINE BACTERIA 2 /uL (0-1359); URINE BILIRUBIN NEGATIVE (NEGATIVE); URINE COLOR YELLOW; URINE GLUCOSE (UA) NEGATIVE (NEGATIVE); URINE KETONE NEGATIVE (NEGATIVE); URINE LEUK ESTERASE NEGATIVE (NEGATIVE); URINE NITRITE NEGATIVE (NEGATIVE); URINE PROTEIN NEGATIVE (NEGATIVE); URINE RBC 5 /uL (0-23.9); URINE UROBILINOGEN 0.2 mg/dL (0.2-1.0); URINE WBC 2 /uL (0-25.8)
[2023-02-01] MEDS: MELATONIN 5 MG TABLETS PO SCH (21:34)
[2023-02-01] MEDS: THIAMINE HCL 100 MG TABLET (FP) PO SCH (21:34)
[2023-02-01] MEDS: NICOTINE POLACRILEX 4 MG GUM BUC PRN (21:34)
[2023-02-02] MEDS: PHENYTOIN NA EXTENDED 100 MG CAPSULE (FP) PO SCH ×3 (06:21→21:35)
[2023-02-02] MEDS: NICOTINE 7 MG/24 HOURS TOPICAL PATCH TD SCH (10:28)
[2023-02-02] MEDS: PRENATAL VITAMINS W/ FOLIC ACID TABLET (FP) PO SCH (10:28)
[2023-02-02] MEDS: MELATONIN 5 MG TABLETS PO SCH (21:35)
[2023-02-02] MEDS: THIAMINE HCL 100 MG TABLET (FP) PO SCH (21:35)
[2023-02-03] MEDS: PHENYTOIN NA EXTENDED 100 MG CAPSULE (FP) PO SCH (07:10)
[2023-02-03] MEDS: NICOTINE 7 MG/24 HOURS TOPICAL PATCH TD SCH (10:14)
[2023-02-03] MEDS: PRENATAL VITAMINS W/ FOLIC ACID TABLET (FP) PO SCH (10:14)
[2023-02-03] MEDS: IBUPROFEN 600 MG TABLET (FP) PO PRN ×2 (16:31→21:21)
[2023-02-03] MEDS: THIAMINE HCL 100 MG TABLET (FP) PO SCH (21:20)
[2023-02-03] MEDS: MELATONIN 5 MG TABLETS PO SCH (21:20)
[2023-02-03] MEDS: NICOTINE POLACRILEX 4 MG GUM BUC PRN (21:21)
[2023-02-04] MEDS: PRENATAL VITAMINS W/ FOLIC ACID TABLET (FP) PO SCH (10:06)
[2023-02-04] MEDS: NICOTINE 7 MG/24 HOURS TOPICAL PATCH TD SCH (10:06)
[2023-02-04] MEDS ORDERED: NICOTINE 7 MG/24 HOURS TOPICAL PATCH TD PRN (16:05)
[2023-02-04] MEDS: BENZOCAINE 20 % GEL TUBE MM PRN (18:12)
[2023-02-04] MEDS: MELATONIN 5 MG TABLETS PO SCH (22:29)
[2023-02-04] MEDS: THIAMINE HCL 100 MG TABLET (FP) PO SCH (22:29)
[2023-02-05] MEDS: IBUPROFEN 400 MG TABLET (FP) PO PRN (06:20)
[2023-02-05] MEDS: BENZOCAINE 20 % GEL TUBE MM PRN ×2 (06:21→21:14)
[2023-02-05] MEDS: MELATONIN 5 MG TABLETS PO SCH (21:12)
[2023-02-05] MEDS: NICOTINE POLACRILEX 4 MG GUM BUC PRN (21:12)
[2023-02-05] MEDS: THIAMINE HCL 100 MG TABLET (FP) PO SCH (21:12)
[2023-02-05] MEDS: IBUPROFEN 600 MG TABLET (FP) PO PRN (21:13)
[2023-02-06] MEDS: IBUPROFEN 400 MG TABLET (FP) PO PRN (06:21)
[2023-02-06] MEDS: NICOTINE POLACRILEX 4 MG GUM BUC PRN (06:22)
[2023-02-06] MEDS: BENZOCAINE 20 % GEL TUBE MM PRN (06:25)
[2023-02-06] MEDS: MELATONIN 5 MG TABLETS PO SCH (21:23)
[2023-02-06] MEDS: IBUPROFEN 600 MG TABLET (FP) PO PRN (21:23)
[2023-02-06] MEDS: THIAMINE HCL 100 MG TABLET (FP) PO SCH (21:23)
[2023-02-07] MEDS: IBUPROFEN 600 MG TABLET (FP) PO PRN (07:01)
[2023-02-07] MEDS: THIAMINE HCL 100 MG TABLET (FP) PO SCH (21:26)
[2023-02-07] MEDS: MELATONIN 5 MG TABLETS PO SCH (21:26)
[2023-02-08] MEDS: IBUPROFEN 600 MG TABLET (FP) PO PRN (06:33)
[2023-02-08] MEDS: NICOTINE POLACRILEX 4 MG GUM BUC PRN (06:34)
[2023-02-08] MEDS: THIAMINE HCL 100 MG TABLET (FP) PO SCH (21:55)
[2023-02-08] MEDS: MELATONIN 5 MG TABLETS PO SCH (21:55)
[2023-02-09] MEDS: MELATONIN 5 MG TABLETS PO SCH (21:46)
[2023-02-09] MEDS: THIAMINE HCL 100 MG TABLET (FP) PO SCH (21:46)
[2023-02-10] MEDS: IBUPROFEN 600 MG TABLET (FP) PO PRN ×2 (08:51→21:19)
[2023-02-10] MEDS: THIAMINE HCL 100 MG TABLET (FP) PO SCH (21:19)
[2023-02-10] MEDS: MELATONIN 5 MG TABLETS PO SCH (21:20)
[2023-02-10] MEDS: NICOTINE POLACRILEX 4 MG GUM BUC PRN (21:21)
[2023-02-11] MEDS: IBUPROFEN 400 MG TABLET (FP) PO PRN (06:39)
[2023-02-11] MEDS: MELATONIN 5 MG TABLETS PO SCH (21:28)
[2023-02-11] MEDS: THIAMINE HCL 100 MG TABLET (FP) PO SCH (21:28)
[2023-02-12 11:18] LABS: POTASSIUM 5.1 mmol/L (3.5-5.1)
[2023-02-12 11:29] LABS: ALBUMIN 3.3 g/dl (3.4-5.0); BLOOD UREA NITROGEN 12.1 mg/dL (7-18); CALCIUM 8.9 mg/dL (8.5-10.1)
[2023-02-12 11:31] LABS: CREATININE 0.9 mg/dL (0.55-1.3)
[2023-02-12 11:32] LABS: BILIRUBIN,TOTAL 0.3 mg/dL (0.2-1)
[2023-02-12 11:36] LABS: TOT PROT 6.8 g/dl (6.4-8.2)
[2023-02-12 11:38] LABS: EOS % 3.9 % (0-4.5); HEMATOCRIT 35.7 % (35.4-49); HEMOGLOBIN 11.9 GM/dL (11.7-16.9); LYMPH % 42.7 % (8-40); MCH 28.1 pg (25.7-33.7); MCHC 33.5 g/dl (32.0-35.9); MEAN CELL VOLUME 83.8 fl (80-96); MEAN PLT VOLUME 8.6 fl (7.5-11.1); MONO % 13.5 % (3.8-10.2); NEUT % 38.9 % (42.8-82.8); PLATELET COUNT 264 10^3/uL (134-434); RBC 4.26 M/mm3 (4.00-5.60); RDW 15.8 % (11.9-15.9); WHITE BLOOD COUNT 4.8 K/mm3 (4.0-10.0)
[2023-02-12] MEDS: IBUPROFEN 600 MG TABLET (FP) PO PRN ×2 (13:35→21:24)
[2023-02-12] MEDS: NICOTINE POLACRILEX 4 MG GUM BUC PRN ×2 (13:36→21:25)
[2023-02-12] MEDS: THIAMINE HCL 100 MG TABLET (FP) PO SCH (21:23)
[2023-02-12] MEDS: MELATONIN 5 MG TABLETS PO SCH (21:23)
[2023-02-13] MEDS: PRENATAL VITAMINS W/ FOLIC ACID TABLET (FP) PO PRN (09:54)
[2023-02-13] MEDS: NICOTINE POLACRILEX 4 MG GUM BUC PRN (09:54)
[2023-02-13] MEDS: IBUPROFEN 600 MG TABLET (FP) PO PRN ×2 (09:54→21:33)
[2023-02-13] MEDS: THIAMINE HCL 100 MG TABLET (FP) PO SCH (21:32)
[2023-02-13] MEDS: MELATONIN 5 MG TABLETS PO SCH (21:32)
[2023-02-14 06:41] VITALS: RESP 18; TEMP 98
[2023-02-14] MEDS: IBUPROFEN 600 MG TABLET (FP) PO PRN (09:43)
[2023-02-14] MEDS: PRENATAL VITAMINS W/ FOLIC ACID TABLET (FP) PO PRN (09:44)
[2023-02-14] MEDS: NICOTINE POLACRILEX 4 MG GUM BUC PRN (09:44)
[2023-02-14] MEDS: THIAMINE HCL 100 MG TABLET (FP) PO SCH (21:48)
[2023-02-14] MEDS: MELATONIN 5 MG TABLETS PO SCH (21:48)
[2023-02-15] MEDS: THIAMINE HCL 100 MG TABLET (FP) PO SCH (21:24)
[2023-02-15] MEDS: MELATONIN 5 MG TABLETS PO SCH (21:24)
[2023-02-15] MEDS: IBUPROFEN 600 MG TABLET (FP) PO PRN (21:25)
[2023-02-16] MEDS: IBUPROFEN 400 MG TABLET (FP) PO PRN (09:39)
[2023-02-16] MEDS: NICOTINE POLACRILEX 4 MG GUM BUC PRN ×2 (09:40→22:06)
[2023-02-16] MEDS: THIAMINE HCL 100 MG TABLET (FP) PO SCH (22:04)
[2023-02-16] MEDS: MELATONIN 5 MG TABLETS PO SCH (22:04)
[2023-02-16] MEDS: IBUPROFEN 600 MG TABLET (FP) PO PRN (22:05)
[2023-02-17 06:46] VITALS: BP 130/83; PULSE 56
[2023-02-17] MEDS: IBUPROFEN 600 MG TABLET (FP) PO PRN (07:08)
[2023-02-17] MEDS: NICOTINE POLACRILEX 4 MG GUM BUC PRN (07:09)
== END 2023-02-17 11:00 | disposition home or self-care (01) | DRG 772 ==
LOC: YASAS 10:41 → Y3W 14:31 → Y3E 02-03 16:48
PROVIDERS: ADMIT Allergy & Immunology; ATTEND Psychiatry & Neurology Pain Medicine
PROC: HZ42ZZZ Group Counseling for Substance Abuse Treatment, Cognitive-Behavioral (ICD-10-PCS; principal; 2023-01-28)
DX: F10.20 Alcohol dependence, uncomplicated (principal); F14.20 Cocaine dependence, uncomplicated; F12.20 Cannabis dependence, uncomplicated; F17.220 Nicotine dependence, chewing tobacco, uncomplicated; F20.9 Schizophrenia, unspecified; F31.9 Bipolar disorder, unspecified; F60.2 Antisocial personality disorder; F19.24 Other psychoactive substance dependence with psychoactive substance-induced mood disorder; G62.9 Polyneuropathy, unspecified; I25.119 Atherosclerotic heart disease of native coronary artery with unspecified angina pectoris; K08.89 Other specified disorders of teeth and supporting structures; Z59.00 Homelessness unspecified
CPT/HCPCS: 36415; 80053; 80185; 80307; 81003; 83036; 85025; 85027; 86780; 86803; 87635; 87811; 93005; 93010